=== PATIENT | female | born 1955 | race Caucasian/White ===

== ENCOUNTER → 2017-01-27 | Outpatient (CLI) | payer BC ==
[~2017-01-27] MED LIST: ASTN; BENA10TA9 PO; CITA20TA9 PO; ESZO3TAB15 PO; FLUR100T PO; FLUT0.15 INH; GLC850 PO; LEVO25TA PO; MULTTAB58 PO; OMEP40CA PO; PSEU30TA20 PO; [UNRECOGNIZED DRUG - REMARK] PO
--- NOTE | 2017-01-27 14:03 | DIAGNOSTIC IMAGING REPORT ---
LEFT SHOULDER MIN 2 VIEWS CLINICAL HISTORY: Left shoulder pain status post trauma COMPARISON: None. DISCUSSION: No acute fractures or dislocations are visualized. There is humeral head spurring at the level of the greater tuberosity. Degenerative changes are present within the AC joint. IMPRESSION: No acute fractures or dislocations identified. Electronically signed by: Thad Govea M.D. 01/27/2017 2:02 PM Dictated Date/Time: 01/27/2017 2:01 PM
--- NOTE | 2017-01-27 14:07 | DIAGNOSTIC IMAGING REPORT ---
LEFT WRIST MIN 3 VIEWS ROUTINE CLINICAL HISTORY: Left wrist pain following fall. COMPARISON: None FINDINGS: Alignment of the left wrist is anatomic. No acute fracture is identified. Osteopenia is noted. Mild arthritis is noted within multiple articulations. IMPRESSION: 1. No acute fracture. 2. Osteopenia and mild osteoarthritis of the left first carpometacarpal joint. Electronically signed by: Sharad Lacey M.D. 01/27/2017 2:06 PM Dictated Date/Time: 01/27/2017 2:05 PM
== END | disposition home or self-care (01) ==
LOC: C.RDSM 13:46
PROVIDERS: ATTEND Physician Assistant
DX: M25.532 Pain in left wrist (principal); S46.091D Other injury of muscle(s) and tendon(s) of the rotator cuff of right shoulder, subsequent encounter; X58.XXXD Exposure to other specified factors, subsequent encounter; M85.832 Other specified disorders of bone density and structure, left forearm

== ENCOUNTER → 2017-02-15 | Outpatient (CLI) | payer BC ==
[~2017-02-15] MED LIST changes: +GADAVIST IV PRN
--- NOTE | 2017-02-15 12:09 | DIAGNOSTIC IMAGING REPORT ---
FLUOROSCOPIC GUIDED LEFT SHOULDER ARTHROGRAM FLUOROSCOPY TIME: 6 seconds. HISTORY: Left shoulder pain.. PROCEDURE: After obtaining written informed consent, the patient was placed supine on the fluoroscopy table. A suitable site for needle insertion was marked using fluoroscopic guidance. The left shoulder was prepped and draped in the usual sterile fashion. 1% lidocaine was used for skin, subcutaneous and deep soft tissue anesthesia. Under intermittent fluoroscopic guidance, a 22 gauge 2.5 inch spinal needle was inserted into the left glenohumeral joint. A total of 14 cc of one-to-one mixture of dilute Magnevist (0.1 cc in 10 cc saline) and Optiray 300 were injected. The needle was then removed. There were no apparent complications. The patient was transported to for further imaging. IMPRESSION: Fluoroscopic-guided left shoulder arthrogram without immediate complication. Total injected volume was 14 cc. MR portion of the examination will be dictated separately. Electronically signed by: Javon House M.D. 02/15/2017 12:07 PM Dictated Date/Time: 02/15/2017 12:07 PM
--- NOTE | 2017-02-15 14:10 | DIAGNOSTIC IMAGING REPORT ---
ADDENDUM Correction to the following report: Impression #5 should read as follows: 5. Mild glenohumeral and moderate acromioclavicular osteoarthritis. Electronically signed by: Khurram Ku M.D. 02/17/2017 3:47 PM Dictated Date/Time: 02/17/2017 3:47 PM ORIGINAL REPORT LEFT UPPER EXTREMITY JOINT W/ CLINICAL HISTORY: 61 years-old Female with FALL, LEFT SHOULDER PAIN, R/O RC INJURY. COMPARISON: Left shoulder radiographs 01/27/2017. TECHNIQUE: Multiplanar, multi sequence MRI of the left shoulder was performed following the intra-articular administration of 0.1 mL Gadavist. FINDINGS: The exam is mildly limited secondary to patient motion on several of the sequences. ROTATOR CUFF: There is moderate thickening with intermediate T2 signal noted involving the supraspinatus and infraspinatus tendons compatible with moderate to severe tendinosis. There is irregular full-thickness tear of the anterior, mid and posterior fibers of the insertional supraspinatus tendon, 1.3 x 1.6 cm in transverse and AP dimension (nicely seen on image 9 of the coronal T2 series and image 15 of the sagittal series). Contrast is seen extending from the joint capsule through the tear into the adjacent subacromial/subdeltoid bursa. No associated retraction. There is mild supraspinatus atrophy. There is mild fraying of the anterior insertional fibers of the infraspinatus tendon without high-grade partial or full-thickness tear identified. The teres minor is intact. There is mild tendinosis of the subscapularis tendon without discrete tear. BICEPS TENDON: The longhead biceps tendon is intact. No evidence of tendinosis. The biceps katya and anchor are intact. LABRUM: There is mild fraying involving the anterosuperior labrum, for example nicely seen on image 11 of the axial series and image 10 of the coronal series without acute appearing tear or paralabral cyst. GLENOHUMERAL JOINT: There is mild glenohumeral osteoarthritis with cartilaginous thinning and marginal spurring. No intra-articular loose body identified. ACROMIOCLAVICULAR JOINT: Moderate degenerative changes are present within the AC joint with subcortical cystic change, capsular hypertrophy and marginal spurring. The acromion demonstrates a smooth undersurface with mild spurring. Mild subacromial/subdeltoid bursitis. OUTLET SPACES: The suprascapular notch and quadrilateral space are without obstructing or space occupying lesions. BONE MARROW: No focal abnormality, fracture or marrow occupying lesion. SOFT TISSUES: The periarticular soft tissues are unremarkable. IMPRESSION: 1. Moderate severe background tendinosis involves the supraspinatus and infraspinatus tendons with an irregular full-thickness tear of the anterior, mid and posterior fibers of the insertional supraspinatal tendon, 1.3 x 1.6 cm. No associated tendon retraction, however there is mild volume loss of the supraspinatus musculature. 2. Mild fraying of the anterior insertional fibers infraspinatus tendon without high-grade partial or full-thickness tear identified. 3. Mild tendinosis of the subscapularis tendon. 4. Fraying of the anterosuperior labrum without acute labral tear or paralabral cyst. 5. 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 The above report was generated using voice recognition software. It may contain grammatical, syntax or spelling errors. Electronically signed by: Khurram Ku M.D. 02/15/2017 2:09 PM Dictated Date/Time: 02/15/2017 12:17 PM
== END | disposition home or self-care (01) ==
LOC: C.MRIBC 10:44
PROVIDERS: ATTEND Physician Assistant
DX: S46.092D Other injury of muscle(s) and tendon(s) of the rotator cuff of left shoulder, subsequent encounter (principal); X58.XXXD Exposure to other specified factors, subsequent encounter; M75.41 Impingement syndrome of right shoulder; M75.82 Other shoulder lesions, left shoulder; S46.012A Strain of muscle(s) and tendon(s) of the rotator cuff of left shoulder, initial encounter; M19.012 Primary osteoarthritis, left shoulder

== ENCOUNTER → 2017-04-27 | Outpatient (CLI) | payer BC ==
[~2017-04-27] MED LIST changes: -ASTN; +BENA10TA10 PO; -BENA10TA9 PO; +CITA20TA4 PO; -CITA20TA9 PO; +ESZO1TAB16 PO; -ESZO3TAB15 PO; +FISHOIL PO; -GADAVIST IV PRN; -GLC850 PO; +IRON PO; +METF-383 PO; +MISCCAP80 PO; -OMEP40CA PO; +OMEP40CA41 PO; -PSEU30TA20 PO; +VITAMIN D PO; -[UNRECOGNIZED DRUG - REMARK] PO
--- NOTE | 2017-04-28 07:50 | MAMMOGRAPHY REPORT ---
BILATERAL DIGITAL SCREENING MAMMOGRAM TOMOSYNTHESIS WITH CAD: 04/27/2017 CLINICAL HISTORY: Routine screening. Patient has no complaints. TECHNIQUE: Breast tomosynthesis in addition to standard 2D mammography was performed. Current study was also evaluated with a Computer Aided Detection (CAD) system. COMPARISON: Comparison is made to exams dated: 03/26/2016 mammogram, 03/21/2015 mammogram, 03/20/2014 m ammogram, 03/19/2013 mammogram, 01/24/2012 mammogram, and 01/20/2011 mammogram - [facility]. BREAST COMPOSITION: There are scattered areas of fibroglandular density in both breasts. FINDINGS: There is a small grouping of microcalcifications in the upper outer middle one third of th e right breast for which additional spot magnification views are recommended. A possible 16 mm lobul ated mass in the left upper outer quadrant warrants additional targeted ultrasound and possible addit ional mammographic views. No other suspicious mass, architectural distortion or cluster of microcalcifications is seen. IMPRESSION: ACR BI-RADS CATEGORY 0: INCOMPLETE EVALUATION: NEED ADDITIONAL IMAGING EVALUATION The small grouping of microcalcifications in the right upper outer quadrant and possible 16 mm lobula giuliana mass in the left upper outer quadrant need additional imaging evaluation. The patient will be called to schedule an appointment. Approximately 10% of breast cancers are not detected with mammography. A negative mammographic report should not delay biopsy if a clinically suggestive mass is present. Tanan Salinas M.D. ay/:04/27/2017 16:16:36 Associate Drafter: Maureen PINK(Sheila)(Shonda)(VIVI), [facility] letter sent: Addl Imaging 0 BI-RADS Code: ACR BI-RADS Category 0: Incomplete Evaluation: Need Additional Imaging Evaluation
== END | disposition home or self-care (01) ==
LOC: C.MAMM 15:46
PROVIDERS: ATTEND Obstetrics & Gynecology
DX: Z12.31 Encounter for screening mammogram for malignant neoplasm of breast (principal); R92.0 Mammographic microcalcification found on diagnostic imaging of breast

== ENCOUNTER → 2017-04-29 | Day surgery (SDC) | payer BC ==
[2017-04-12 13:12] VITALS: Ht 170.2 cm; Wt 90.9 kg
[~2017-04-29] VITALS: Ht 170.2 cm; Wt 90.9 kg
[~2017-04-29] MED LIST changes: +ATROPINE SULFATE 0.1 MG/ML 5ML SYR IV PRN; +BUPIVACAINE/EPINEPHRINE 0.5% MPF 1:200,000 30 ML VIAL ONE; +CEFAZOLIN 2000MG IV PUSH 10 ML IV SCH; +DEXAMETHASONE SOD INJ 4 MG/ML VIAL ONE; +EpHEDrine SULFATE 50MG/5ML SYR ONE; +EpHEDrine SULFATE INJ 50 MG/ML AMP IV PRN; +EpINEphrine HCL INJ 1 MG/ML 5ML SYRINGE ONE; +FENTANYL CITRATE INJ 50 MCG/1 ML 2 ML VIAL IV PRN; +FENTANYL CITRATE INJ 50 MCG/1 ML 2 ML VIAL ONE; +HYDROmorphone INJ 1 MG/ML SYR IV PRN; +LABETALOL HCL IV 5 MG/ML 20ML IV ONE; +LACTATED RINGER'S 1000ML 1,000 ML IV SCH; +LIDOCAINE HCL 2% 2 ML VIAL (20MG/ML) ONE; +MIDAZOLAM HCL 1 MG/ML 2ML VIAL ONE; +ONDANSETRON INJ 2 MG/ML 2 ML VIAL IV PRN; +ONDANSETRON INJ 2 MG/ML 2 ML VIAL ONE; +OXYCODONE/ACETAMINOPHEN 5-325 TAB PO PRN; +PROPOFOL IV EMULSION 10 MG/ML 20 ML VIAL IV ONE; +ROCURONIUM BROMIDE 10 MG/ML 5 ML VIAL IV ONE; +ROPIVACAINE 0.5% 5 MG/ML 30 ML VIAL ONE; +SODIUM CHLORIDE 0.9% 1000ML 1,000 ML IV SCH; +SUCCINYLCHOLINE CHLORIDE 20 MG/ML 10 ML VIAL IV ONE
--- NOTE | 2017-04-29 09:06 | History & Physical Bridge Note ---
H&P Re-Evaluation Bridge Note: I have examined the patient, reviewed the History & Physical and in the interval since the performance of the History & Physical I have noted the following changes of clinical significance: consent reviewed.No changes noted
--- NOTE | 2017-04-29 09:08 | Discharge Instructions ---
Discharge Instructions Date of Service Apr 29, 2017. Visit Reason for Visit: Left Shoulder Rotator Cuff Tear Discharge Discharge Diagnosis / Problem: same Discharge Goals Goal(s): Decrease discomfort, Increase independence Medications Stopped Medications Name(s): Stopped Metformin Tuesday. Last took Tuesday. Activity Recommendations Activity Limitations: as noted below Lifting Limitations: until after follow-up appointment Exercise/Sports Limitations: until after follow-up appointment May Resume Sexual Activity: when tolerated Shower/Bathe: keep incision dry Driving or Machine Use: resume 3 days after discharge Anesthesia . Post Anesthesia Instructions: If you have had General Anesthesia or IV Sedation: * Do not drive today. * Resume driving when surgeon permits. * Do not make important decisions or sign legal documents today. * Call surgeon for: 1. Temperature elevations greater than 101 degrees F. 2. Uncontrollable pain. 3. Excessive bleeding. 4. Persistent nausea and vomiting. 5. Medication intolerance (nausea, vomiting or rash). * For nausea and vomiting use only clear liquids such as: tea, soda, bouillon until nausea subsides, then gradually increase diet as tolerated. * If you have any concerns or questions, call your surgeon's office. If physician is unavailable and it is an emergency, call 911 or go to the nearest emergency room. . Instructions / Follow-Up Instructions / Follow-Up The following are instructions to follow after "Shoulder Surgery" including, Acromioplasty, Rotator Cuff Repair and Instability Surgery ACTIVITY RECOMMENDATIONS: * Minimize activity after surgery. * No excessive walking, jogging, sports or laboring. * Return to activity is individualized depending on the patient and type of surgery. * Driving is not permitted until at least your first post operative visit. Please ask your doctor when it is safe to resume driving. * Expect increased discomfort with increased activity. Continue to ice the shoulder as needed. SCHOOL/WORK RECOMMENDATIONS: * You may return to sedentary work or school when you are feeling more comfortable. This is usually 3-7 days after surgery. MEDICATIONS: * You will have a prescription for pain medication and an anti-inflammatory medication after surgery. * Use the pain medication for severe pain and the anti-inflammatory for less severe pain. Once the pain medication has run out, try to use the anti-inflammatory medication. If this is not effective, contact the office for assistance. * The pain medication may cause nausea, constipation and drowsiness. You should see how they affect you before driving or similar activity. * The anti-inflammatory medication may cause stomach upset and bleeding. If this occurs let your doctor know immediately . * Take a stool softener like Colace or a laxative like Senokot to prevent constipation. DIET: * Resume previous diet. SPECIAL CARE: ICE: You have the option of an ice cooler, gel packs or ice bags. * If you have an ice cooler, refer to the instructions for that device. The ice cooler may be used continuously. * If you do not have an ice cooler, you will need to use ice bags or gel packs. Do not apply ice directly to the skin. Use a thin dressing or love shirt between the skin and ice bag. Apply ice for 20-30 minutes and repeat every 2-4 hours. This is especially important for the first 7-10 days after surgery. Once the pain improves, use ice as needed. ELEVATION: * You may be more comfortable sleeping in an upright position. Use the sling to elevate your arm. DRESSING: * Your dressing will be changed at your first therapy appointment approximately 4-5 days after surgery. Band-aids, tape strips or gauze may be applied. You may then change your dressing daily. * Reapply dressing followed by the EBIce cooling pad (if chosen) and then the sling. * Always wash your hands prior to touching the incision area. * Once the stitches are removed, you may leave the wound open to air or cover with gauze. * Expect some bloody drainage for the first few days after surgery. * Leave the tape strips, if present, in place for 5-7 days. * Band-aids and gauze may be changed daily. * There may be a gauze pad in your armpit area. This can be changed daily or replaced by a dry washcloth. SLING/BRACE: * You will need to use a sling or brace after surgery. The length of time the sling is used is dependent upon the type of surgery performed. * Arthroscopic Acromioplasty requires use of the sling for 2-4 weeks for comfort. * Labral procedures and Rotator Cuff Repairs require use of the sling for a longer period of time. Please check with your doctor prior to discontinuing the sling. BATHING: * You may shower or sponge-bathe immediately after surgery. The post operative shoulder dressing is mostly water-tight. You may shower right over this dressing, but be reasonably careful not to get the gauze or incision wet. * Once the dressing has been changed on the fourth or fifth day after surgery, you may shower and get the incision wet. * Wash with regular soap and water. * Do not bathe (submerge the incision), soak, swim or use a hot tub until the incision is completely healed over with normal skin and the doctor has given the OK to proceed. * There is no need to apply any ointments, powders or salves to your incision. * Do not apply alcohol or hydrogen peroxide directly to the incision. * Diluted peroxide (50:50 mixture with sterile saline) may be used to clean dried blood from around the incision area. THERAPY: * You will begin therapy four or five days after surgery. * Organized therapy with the therapist is important for the first 2-4 months after surgery depending on the type of procedure. During that time you will attend therapy 1-3 times per week. * You will also need to do daily exercises for range of motion and strength as instructed. * Patients who have a Capsular Shift Procedure will need to abide by temporary range of motion limitations. * Patients having Rotator Cuff Surgery are not allowed to actively lift their arms until 4-6 weeks after surgery. * Please check with your doctor regarding appropriate motion restrictions. FOLLOW UP VISIT: * If not already scheduled, please call the office at to schedule a follow-up appointment for 10 days after surgery and monthly thereafter. Diet Recommendations Recommended Home Diet: diabetes diet Procedures Procedures Performed: see op note Pending Studies Studies pending at discharge: no Medical Emergencies . Who to Call and When: Medical Emergencies: If at any time you feel your situation is an emergency, please call 911 immediately. . Non-Emergent Contact Non-Emergency issues call your: Specialist Call Non-Emergent contact if: wound has increased drainage, wound has increased redness, wound has increased pain . . "Provider Documentation" section prepared by Eliazar Singer. .
--- NOTE | 2017-04-29 10:41 | [facility] Post Operative Brief Note ---
Immediate Operative Summary Operative Date Apr 29, 2017. Pre-Operative Diagnosis Left Shoulder Rotator Cuff Tear/impimgement/bicepe tendinitis Post-Operative Diagnosis Same Procedure(s) Performed Left Shoulder Exam Under Anesthesia, Arthroscopy, Biceps Tenotomy, 2 CM Rotator Cuff Repair/subacromial decompression Surgeon Dr. Bereket Singer Corporate Compliance Director Surgeon(s) Dr. Jarek Nelson Estimated Blood Loss Trace Findings see op note Fluids (cc crystalloids) 1100cc Specimens None Drains none Anesthesia LMA Complication(s) None Disposition Recovery Room / PACU
--- NOTE | 2017-04-29 11:10 | OPERATIVE REPORT ---
DATE OF OPERATION: 04/29/2017 PREOPERATIVE DIAGNOSIS: Chronic impingement syndrome left shoulder with rotator cuff tear and biceps tendinopathy. POSTOPERATIVE DIAGNOSIS: Same. OPERATION PERFORMED: 1. Exam under anesthesia. 2. Diagnostic arthroscopy. 3. Arthroscopic subacromial decompression. 4. Arthroscopic biceps tenotomy. 5. Arthroscopic 2 cm rotator cuff repair. SURGEON: Dr. Singer. ARCHITECT: Omar. SIGNS AND DISPLAYS SALES REPRESENTATIVE: Cristian Montero PA-C. PERIOPERATIVE SITUATION: Medically cleared female with intractable shoulder pain. Physical exam, x-ray and MRI scan consistent with the above diagnosis. She is diabetic. She is appropriately managed. She was advised that this could become quite stiff, see complication list for to the procedure on the consent. OPERATION AND FINDINGS: PROCEDURE: The patient appropriately identified, site verified, consent verified, 2 grams of Ancef confirmed as being given. The shoulder was examined revealing no instability, no arthrofibrosis. She was then carefully placed in a beach chair position and left upper extremity prepped and draped in usual routine fashion. An anterior portal made just off the edge of the AC joint. Posterior portal made 2 cm medial and inferior to posterolateral tip of the acromion joint was entered. Immediately encountered was a significant biceps tendinopathy with flattening and hyperemia of the tendon. This was released. The labrum was gently debrided. There was some superior labral changes. There was some minor articular disease that was lightly debrided. The remaining part of the shoulder joint was normal with the exception of the supraspinatus tear which was quite frayed. This was marked with a needle. The subacromial space was then entered. There was exuberant bursa that was resected. CA ligament was then resected. The acromioplasty was then performed. Using an accessory anterolateral portal a Maryellen cannula was placed and 2 sutures placed anteriorly on the cup, 2 sutures placed posteriorly on the cup. Two anchors were then placed 4.75 PEEK SwiveLock anchors repairing the tendon back down to its almost new [place] insertion site. This was all cleaned of soft tissue. Good tension was on the repair. The repair was quite a combination of intraarticular and subacromial delamination. This was all tapered with the shaver and the thermal device to decrease any type of impingement complaints. Tension on the repair was good. It could be placed through range of motion without retraction. The procedure was then terminated. All instruments and fluid removed. The portals closed with 4-0 nylon, dressed with Xeroform, 4 x 4 gauze, sterile ABD pads and Ioban dressing. The patient will follow up in PT on Tuesday. DVT prophylaxis not required, ambulate. Use aspirin only. ESTIMATED BLOOD LOSS: Trace. CRYSTALLOID: 1100 mL. I attest to the content of the Intraoperative Record and any orders documented therein. Any exception s are noted below.
[2017-04-29 11:39] VITALS: TEMP 36.2
--- NOTE | 2017-04-29 12:09 | Anesthesia Progress Nt - [facility] ---
Anesthesia Post Op Note Date & Time Apr 29, 2017 at 12:09 Vital Signs Pain Intensity: 0 Vital Signs Past 12 Hours Date Time Temp Pulse Resp B/P (MAP) Pulse Ox O2 Delivery O2 Flow Rate FiO2 04/29/17 11:39 36.2 58 18 170/84 (112) 98 Room Air 04/29/17 11:36 170/83 04/29/17 11:34 36.8 60 16 170/83 95 Room Air 04/29/17 11:33 61 22 96 04/29/17 11:33 61 22 04/29/17 11:31 178/80 04/29/17 11:28 58 16 161/78 98 04/29/17 11:28 57 16 04/29/17 11:26 138/112 04/29/17 11:23 63 18 04/29/17 11:23 62 18 04/29/17 11:21 155/81 04/29/17 11:18 67 14 04/29/17 11:18 67 14 98 04/29/17 11:16 168/84 04/29/17 11:13 66 11 04/29/17 11:13 65 11 100 04/29/17 11:11 167/86 04/29/17 11:08 71 14 04/29/17 11:08 69 14 99 04/29/17 11:06 170/84 04/29/17 11:03 71 16 04/29/17 11:03 71 16 100 04/29/17 11:01 174/75 04/29/17 10:58 64 12 04/29/17 10:58 63 12 100 04/29/17 10:56 177/84 04/29/17 10:54 167/87 04/29/17 10:53 36.3 73 16 162/87 100 Mask 6 04/29/17 09:15 10 04/29/17 09:11 169/89 04/29/17 09:10 64 18 100 04/29/17 09:10 63 04/29/17 09:05 64 04/29/17 09:05 72 0 169/95 99 04/29/17 07:05 70 04/29/17 07:05 70 0 99 04/29/17 07:00 69 0 99 04/29/17 07:00 69 04/29/17 06:55 0 04/29/17 06:30 37. 62 16 167/79 (108) 97 Room Air Notes Mental Status: alert / awake / arousable, participated in evaluation Pt Amnestic to Procedure: Yes Nausea / Vomiting: adequately controlled Pain: adequately controlled Airway Patency, RR, SpO2: stable & adequate BP & HR: stable & adequate Hydration State: stable & adequate Anesthetic Complications: no major complications apparent The patient was given Labetalol 5mg IV in recovery for elevated BP. She was also instructed to take her BP medication when she gets home.
[2017-04-29 12:20] VITALS: BP 160/84; PULSE 59; O2SAT 96
== END | disposition home or self-care (01) ==
LOC: X.SURG 06:21
PROVIDERS: ATTEND Physical Medicine & Rehabilitation Sports Medicine
DX: M75.42 Impingement syndrome of left shoulder (principal); M75.102 Unspecified rotator cuff tear or rupture of left shoulder, not specified as traumatic; M75.22 Bicipital tendinitis, left shoulder; R00.2 Palpitations; I10 Essential (primary) hypertension; E78.00 Pure hypercholesterolemia, unspecified; E11.9 Type 2 diabetes mellitus without complications; K21.9 Gastro-esophageal reflux disease without esophagitis; E03.9 Hypothyroidism, unspecified; E66.9 Obesity, unspecified; M19.90 Unspecified osteoarthritis, unspecified site; Z79.84 Long term (current) use of oral hypoglycemic drugs; Z79.899 Other long term (current) drug therapy

== ENCOUNTER → 2017-05-10 | Outpatient (CLI) | payer BC ==
[~2017-05-10] MED LIST changes: -ATROPINE SULFATE 0.1 MG/ML 5ML SYR IV PRN; -BUPIVACAINE/EPINEPHRINE 0.5% MPF 1:200,000 30 ML VIAL ONE; -CEFAZOLIN 2000MG IV PUSH 10 ML IV SCH; -DEXAMETHASONE SOD INJ 4 MG/ML VIAL ONE; -EpHEDrine SULFATE 50MG/5ML SYR ONE; -EpHEDrine SULFATE INJ 50 MG/ML AMP IV PRN; -EpINEphrine HCL INJ 1 MG/ML 5ML SYRINGE ONE; -FENTANYL CITRATE INJ 50 MCG/1 ML 2 ML VIAL IV PRN; -FENTANYL CITRATE INJ 50 MCG/1 ML 2 ML VIAL ONE; -HYDROmorphone INJ 1 MG/ML SYR IV PRN; -LABETALOL HCL IV 5 MG/ML 20ML IV ONE; -LACTATED RINGER'S 1000ML 1,000 ML IV SCH; -LIDOCAINE HCL 2% 2 ML VIAL (20MG/ML) ONE; -MIDAZOLAM HCL 1 MG/ML 2ML VIAL ONE; -ONDANSETRON INJ 2 MG/ML 2 ML VIAL IV PRN; -ONDANSETRON INJ 2 MG/ML 2 ML VIAL ONE; -OXYCODONE/ACETAMINOPHEN 5-325 TAB PO PRN; -PROPOFOL IV EMULSION 10 MG/ML 20 ML VIAL IV ONE; -ROCURONIUM BROMIDE 10 MG/ML 5 ML VIAL IV ONE; -ROPIVACAINE 0.5% 5 MG/ML 30 ML VIAL ONE; -SODIUM CHLORIDE 0.9% 1000ML 1,000 ML IV SCH; -SUCCINYLCHOLINE CHLORIDE 20 MG/ML 10 ML VIAL IV ONE
--- NOTE | 2017-05-10 14:31 | MAMMOGRAPHY REPORT ---
UNILATERAL RIGHT DIGITAL DIAGNOSTIC MAMMOGRAM AND TARGETED LEFT ULTRASOUND: 05/10/2017 CLINICAL HISTORY: Callback from screening mammogram for right breast calcifications and left breast m ass. TECHNIQUE: Spot magnification right cc and ML views were obtained. COMPARISON: Comparison is made to exams dated: 04/27/2017 mammogram, 03/26/2016 mammogram, 03/21/2015 m ammogram, 03/20/2014 mammogram, 03/19/2013 mammogram, and 01/24/2012 mammogram - [facility]ter. BREAST COMPOSITION: There are scattered areas of fibroglandular density in the right breast. FINDINGS: Spot magnification views of the right breast demonstrate a small 4 mm cluster of approximat jaziel 3-4 heterogeneous calcifications in the right upper outer quadrant. When compared to prior exams , the calcifications are stable dating back to at least the March 2015 exam, and are therefore prob ably benign given at least 2 years of stability. Targeted ultrasound was performed of the left upper outer quadrant in the region of the lobulated chetna mographic mass. In the left breast at 1:00, approximately 7 cm from the nipple, there is an oval cir cumscribed hypoechoic solid mass which measures 10 x 5 x 6 mm. This corresponds with the circumscrib ed mammographic mass seen on the recent screening mammogram. The mass is stable mammographically com pared to MLO views dating back to at least 2010 and 2008. Given the long-term mammographic stability , the mass is considered benign and likely represents a fibroadenoma. IMPRESSION: ACR-BI-RADS CATEGORY 3: PROBABLY BENIGN, TARGETED ULTRASOUND ACR-BI-RADS CATEGORY 3: PRO BABLY BENIGN 1. Small cluster of calcifications in the right upper outer quadrant is stable dating back to at [address] the 2014 exam and is probably benign given greater than 2 years of stability. Recommend follow-up diagnostic tomosynthesis mammograms of the right breast in 6 months to confirm stability on spot mag nification views. 2. Hypoechoic 10 mm mass in the left breast at 1:00 on ultrasound, which corresponds with the mammog raphic mass. The mass has been stable mammographically dating back to 2008 and is therefore consider ed benign and likely represents a fibroadenoma. The patient has been verbally notified of the results. Approximately 10% of breast cancers are not detected with mammography. A negative mammographic report should not delay biopsy if a clinically suggestive mass is present. Nadeen Potter M.D. ah/:05/10/2017 10:39:24 Computer Systems Technician: Rolanda Espinal RT(R)(M), [facility] letter sent: Follow Up Recommended 3 BI-RADS Code: ACR-BI-RADS Category 3: Probably Benign Ultrasound BI-RADS: ACR-BI-RADS Category 3: Pr obably Benign
== END | disposition home or self-care (01) ==
LOC: C.MAMM 09:17
PROVIDERS: ATTEND Obstetrics & Gynecology
DX: R92.1 Mammographic calcification found on diagnostic imaging of breast (principal); N63.20 Unspecified lump in the left breast, unspecified quadrant

== ENCOUNTER → 2017-06-06 | Outpatient (CLI) | payer BC | END | disposition home or self-care (01) | LOC: C.RDSM 11:52 | PROVIDERS: ATTEND Physical Medicine & Rehabilitation Sports Medicine | DX: M75.42 Impingement syndrome of left shoulder (principal) ==

== ENCOUNTER → 2017-11-07 | Outpatient (CLI) | payer OTHER ==
--- NOTE | 2017-11-07 15:09 | MAMMOGRAPHY REPORT ---
UNILATERAL RIGHT DIGITAL DIAGNOSTIC MAMMOGRAM TOMOSYNTHESIS WITH CAD: 11/07/2017 CLINICAL HISTORY: 61-year-old woman presents for follow-up in the right breast for a small grouping o f calcifications in the right upper outer quadrant. TECHNIQUE: Breast tomosynthesis in addition to standard 2D mammography was performed. Current study was also evaluated with a Computer Aided Detection (CAD) system. COMPARISON: Comparison is made to exams dated: 05/10/2017 mammogram, 05/10/2017 ultrasound, 7 mammogram, 03/26/2016 mammogram, 03/21/2015 mammogram, and [facility] BREAST COMPOSITION: There are scattered areas of fibroglandular density in the right breast. FINDINGS: The glandular pattern of the right breast is similar to prior mammograms. There are a few benign-appearing coarse calcifications. A linear scar marker overlies the right upper outer quadran t posteriorly. The spot magnification views of the right breast redemonstrate a small, 4 mm grouping of somewhat verito ear calcifications in the right upper outer middle one third of the breast, that appears similar to t he spot magnification views obtained on 05/10/2017. These are also likely stable dating back to 2015 , given slight differences in technique. Although they could represent a benign degenerating fibroad enoma, another short interval follow-up right diagnostic mammogram including spot magnification views is recommended to ensure longer stability. Annual left mammography will also be due at that time. IMPRESSION: ACR-BI-RADS CATEGORY 3: PROBABLY BENIGN Stable mammographic appearance of the right breast including a small 4 mm grouping of calcifications in the right upper outer quadrant. Another short interval follow-up right diagnostic mammogram inclu ding spot magnification views is recommended to ensure longer stability. Annual left mammography jenise l also be due at that time. These results and recommendations were discussed with the patient at the time of the exam. Approximately 10% of breast cancers are not detected with mammography. A negative mammographic report should not delay biopsy if a clinically suggestive mass is present. Tanna Salinas M.D. ay/:11/07/2017 11:29:18 Advanced Practice Professional: Shannan PINK(Sheila)(Shonda), [facility] letter sent: Follow Up Recommended 3 BI-RADS Code: ACR-BI-RADS Category 3: Probably Benign
== END | disposition home or self-care (01) ==
LOC: C.MAMM 09:37
PROVIDERS: ATTEND Obstetrics & Gynecology
DX: R92.1 Mammographic calcification found on diagnostic imaging of breast (principal)

== ENCOUNTER 2021-07-20 18:25 | Observation (INO) ==
[2021-07-20] MEDS ORDERED: fentaNYL citrate 100 MCG/2 ML VIAL IV STA (18:51)
[2021-07-20] MEDS ORDERED: ONDANSETRON INJ 2 MG/ML 2 ML VIAL IV STA ×2 (18:51→20:39)
--- NOTE | 2021-07-20 18:55 | Emergency Department Note ---
ED Visit Note 65 yo F presenting with fall Fell on flat concrete, no syncope/LOC, hit R knee, L elbow, L side of head XR imaging of R knee/pelvis, L elbow, chest, CT Head Pt seen and evaluated with Dr. Escudero, please refer to his note for further documentation. . Resident Activity Tracking Resident Involvement: Resident Care Provided Care Provided: Adult ED
--- NOTE | 2021-07-20 19:11 | Emergency Department Note ---
Impression & Plan Fracture of right patella, Closed head injury, Laceration of left eyebrow, Acute effusion of left ear, Vertigo ED Provider Note Name: JAGJIT MENENDEZ Age: 65 Sex: F Arrives Via: Ambulance Informant: Patient, EMS ED Provider: Hung Escudero MD Chief Complaint: Fall Impression: As per impressions above Medical Decision Making: Pleasant 65-year-old female with a history of hypertension, hypothyroidism, diabetes who was taking out garbage as evening when she fell to the ground. Initially sounded like she slipped and fell though does admit almost vertiginous symptoms and I will note she does have a left ear effusion. Patient does not have any neurologic deficits or other concerning findings by exam. X-rays with a right patellar fracture and CT of the head is negative. Laceration to the left eyebrow was repaired with Dermabond. Her tetanus shot was within the last 10 years. Patient is feeling better with IV narcotics and would like to try going home. I did discuss this with orthopedics who agree with plan for discharge with outpatient follow-up. Attempted to ambulate patient with knee immobilizer and walker and she is too vertiginous in too much discomfort. Patient is on board with hospitalization for management of her ambulatory dysfunction and vertiginous symptoms. Labs, CT head, EKG are all unremarkable. She has no shortness of breath no evidence of PE. She does have mildly elevated WBC consistent with stress response. Her blood sugar is moderately elevated consistent with her known diabetes. Prior Medical Record and Triage/Nursing Notes reviewed by Me Additional history obtained from chart Differentials:Fracture, dislocation, contusion, intra-abdominal, pneumothorax, intrathoracic, intracranial, neurologic, compartment syndrome, rhabdomyolysis, as well as other pathologies. Vital Signs: reviewed and remarkable for HTN Interventions: fentanyl 75mcg IV, Zofran 4mg iv x 2, dialudid 1 mg iv, nss bolus Labs:Reviewed and remarkable for elevated wbc, elevated bsg Imaging:See Below EKG:Per My Interpretation: Indication Near syncope: NSR 76 bpm, qtc 486. No Ectopy. No Ischemia. Compared to EKG 03/26/15, no significant changes. Consults:Dr. Randolph of orthopedics advised knee immobilizer and discharged with plan to see in clinic tomorrow. Dr. Darnell of [facility] consulted given the persistent vertiginous symptoms and pain and will hospitalize. Plan: Disposition:Hospitalization. Condition: Good History of Present Illness:65-year-old female arrives following a fall at home. She notes she was taking out her compost when she fell to the ground. She is unsure if she slipped or why exactly she fell but she is adamant there was no presyncope/syncope/chest pain or other symptoms prior to falling. She does note that it was icy and cold outside. When she fell she landed on her right knee, her left elbow and the left side of her head. She denies loss of consciousness. She has no neurologic or stroke symptoms. Patient states she does not fall reg ularly. After she fell she realized her knee hurt so bad she could not stand up and she laid on the ground for roughly half hour before a friend walked by. Friend called 911 and now patient is in the ER. Patient notes she is quite cold initially but is starting to warm up with blankets. She has no medications prior to arrival. She states she was not drinking alcohol and or doing any drugs today. She has had no recent head injuries other than today's. She is on no blood thinners nor anticoagulants. She has no family history of bleeding disorders. Patient notes that she was feeling fine earlier in the day and walked her dog quite some distance without any discomfort or difficulty. Patient arrives via EMS. There were no interventions prior to arrival. Patient notes movement of the knee makes her have severe pain and at rest she has moderate pain. ROS: See above HPI for pertinent positives & negatives. A total of 8 systems reviewed and were otherwise negative. Past Medical History:GERD, hypothyroidism, hypertension, diabetes, vertigo, anxiety/depression Past Surgical History:Bilateral shoulder surgery, left knee meniscus surgery Family History:Denies familial history of bleeding disorders Social History:Patient is , does not smoke does not drink alcohol denies any drug use. 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 Home Medications:See Below Allergies:Naproxen Vitals:Blood Pressure: 225/80, Pulse 78, RR 17, T 37.2C, O2 98% on RA Physical Exam: GENERAL: Patient is very uncomfortable appearing and in moderate distress. HEAD: Left facial contusion with 1 cm laceration lateral left eyebrow. EYES: No scleral icterus, unremarkable pupils. ENT: Mucous membranes moist, no nasal congestion. NECK: No masses appreciated, nomeningismus, trachea is midline. No midline TTP. RESPIRATORY: No dyspnea. Clear to auscultation and equal bilaterally. No wheeze, no rhonchi. CARDIOVASCULAR: Regular rate and rhythm.No murmurs, rubs, gallops appreciated. GASTROINTESTINAL: Abdomen soft, non-tender, no peritonitis.Bowel sounds positive.No masses appreciated. BACK: No midline tenderness, no CVA tenderness EXTREMITIES: Bruising/swelling over right patella with severe pain with any movement. Distal n/v intact with normal movement foot. No hip nor femur TTP. Posterior knee without TTP. Left elbow mild swelling with mild TTP and some pain with ROM. No TTP bilateral shoulders nor difficulty with shoulder movement. Normal motion all extremities, no cyanosis, no edema. NEUROLOGIC: Alert and oriented, no acute motor or sensory deficits, no focal weakness, cranial nerves grossly intact. SKIN: No rash, no jaundice, no diaphoresis. PSYCH: Appropriate GCS: 15 ED Course: Times/Reassessments: Patient's pain was controlled with IV narcotics. She was on board with trying to go home but was far too vertiginous when standing and pain could not be controlled without IV narcotics. Procedures: Laceration Repair: Location: left eyebrow Complexity: Simple Length: 1 cm Verbal consent was obtained after the risks and benefits were explained, including but not limited to bleeding, scarring, infection, pain, and bone/ joint/nerve damage. At this time, the risks of the procedure are less than the risks of NOT performing the procedure. A time out was taken and the correct patient and site identified. The skin was prepped with saline. The wound was explored for foreign bodies and none found. Examination revealed no injury to deep structures such as tendons, bone, or significant blood vessels. Debridement was not performed. The wound edges were approximated using dermabond. Hemostasis and excellent approximation was achieved. Detailed wound care instructions and signs and symptoms of infection reviewed with the patient. No complications and the patient tolerated the procedure well. I personally performed the entire procedure. Hung Escudero MD Past Med/Surg History Medical History Chronic sinusitis Diabetes mellitus Hypertension Hypothyroidism Laryngopharyngeal reflux Obesity Postmenopausal atrophic vaginitis Surgical History History of bronchoscopy Hx of colonoscopy Hx of hysterectomy Hx of knee surgery Hx of lumpectomy Hx of rotator cuff surgery both shoulders Family History (Updated 09/10/20 @ 09:37 by Jesusita Licona MD, FACOG) Mother Bipolar disorder Diabetes Carotid artery disease Grandmother (Maternal) Cancer Father Hypertension Prostate cancer Denies family history of Breast cancer Colorectal cancer Social History Smoking Status: Former smoker Tobacco Type: Cigarettes Preferred Language: Palestinian Feels Safe at Home: Yes Allergies Allergies Allergy/AdvReac Type Severity Reaction Status Date / Time naproxen Allergy Unknown JOINT Verified 07/20/21 19:57 INFLAMMATION Home Meds Home Medications Medication Instructions Recorded Confirmed fluticasone propionate 50 2 spray INTNAS DAILY 01/18/20 07/20/21 mcg/actuation nasal spray,suspension levothyroxine 175 mcg tablet 175 mcg PO QAM 01/18/20 07/20/21 metformin 850 mg tablet 850 mg PO TID 01/18/20 07/20/21 omeprazole 20 mg capsule,delayed 20 mg PO QAM 01/18/20 07/20/21 release multivitamin (Daily Multi-Vitamin) 1 tab PO DAILY 09/10/20 07/20/21 atorvastatin 10 mg tablet 10 mg PO QAM 07/20/21 07/20/21 benazepril 10 mg tablet 10 mg PO QAM 07/20/21 07/20/21 bupropion HCl 150 mg 24 hr tablet, 150 mg PO QAM 07/20/21 07/20/21 extended release escitalopram oxalate 20 mg tablet 20 mg PO QAM 07/20/21 07/20/21 flurbiprofen 100 mg tablet 100 mg PO BID 07/20/21 07/20/21 omega 7-kxy-bkr-fish oil 900 1 cap PO QAM 07/20/21 07/20/21 mg-1,400 mg capsule,delayed release Results & Data (ED) Vital Signs Vital Signs - 24 hr 07/20/21 18:38 07/20/21 19:27 07/20/21 20:53 Temperature 37.2 C Temperature Source Oral Pulse Rate 78 Pulse Rate [Left Radial] 83 79 Pulse Rhythm [Left Radial] Regular Pulse Strength [Left Radial] Normal Respiratory Rate 17 15 18 Respiratory Effort / Characteristics Non-Labored Non-Labored Blood Pressure 225/80 H Blood Pressure [Right Arm] 246/103 H 175/80 H Blood Pressure Mean 128 Blood Pressure Mean [Right Arm] 150 111 Blood Pressure Position [Right Arm] Lying Pulse Oximetry 98 97 95 Oxygen Delivery Method Room Air Room Air Room Air Sepsis Recent Fever Within 48 Hours No Sepsis New/Unexplained Change in Mental Status N/A Sepsis Action Taken by Nursing No Action Required Laboratory Data Result diagrams: 07/20/21 21:47 07/20/21 23:01 Lab Results 07/20/21 07/20/21 07/20/21 Range/Units 21:42 21:47 21:47 WBC 16.71 H (4.8-10.8) K/uL RBC 4.08 L (4.2-5.4) M/uL Hgb 10.5 L (12.0-16.0) g/dL Hct 33.9 L (37-47) % MCV 83.1 (80-100) fL MCH 25.7 (25-34) pg MCHC 31.0 L (32-36) g/dL RDW Std Deviation 44.1 (36.4-46.3) fL RDW Coeff of Rudi 14.5 (11.5-14.5) % Plt Count 266 (130-400) K/uL MPV 10.7 H (7.4-10.4) fL Immature Gran % (Auto) 0.3 % Neut % (Auto) 89.0 % Lymph % (Auto) 6.1 % [place] % (Auto) 4.3 % Eos % (Auto) 0.2 % Baso % (Auto) 0.1 % Neut # (Auto) 14.86 H (1.4-6.5) K/uL Lymph # (Auto) 1.02 L (1.2-3.4) K/uL [place] # (Auto) 0.72 H (0.11-0.59) K/uL Eos # (Auto) 0.04 (0-0.5) K/uL Baso # (Auto) 0.02 (0-0.2) K/uL Immature Gran # (Auto) 0.05 H (0.00-0.02) K/uL Sodium 136 (136-145) mmol/L Potassium TNP Chloride 104 (98-107) mmol/L Carbon Dioxide 25 (21-32) mmol/L Anion Gap 7 (3-11) BUN 26 H (6-23) mg/dl Creatinine 0.83 (0.6-1.2) mg/dl Est Cr Clr Drug Dosing 80.8 ml/min Est GFR ( Amer) 85.2 ml/min Est GFR (Non-Af Amer) 73.5 ml/min BUN/Creatinine Ratio 31.3 H (10-20) Glucose 212 H (70-99(Fasting)) mg/dl POC Glucose (70-99) mg/dl Calcium 8.3 L (8.5-10.1) mg/dl Magnesium 1.7 (1.7-2.4) mg/dl Total Bilirubin (0.2-1.0) mg/dl Direct Bilirubin (0-0.2) mg/dl AST (13-39) U/L ALT (7-52) U/L Alkaline Phosphatase (34-104) U/L Troponin I < 0.03 (0-0.04) ng/ml Total Protein (6.0-8.3) gm/dl Albumin (3.4-5.0) gm/dl TSH (0.300-4.500) uIu/ml SARS-CoV-2, RNA, NAAT NEGATIVE (NEGATIVE) 07/20/21 07/20/21 07/20/21 Range/Units 21:47 23:01 23:18 WBC (4.8-10.8) K/uL RBC (4.2-5.4) M/uL Hgb (12.0-16.0) g/dL Hct (37-47) % MCV (80-100) fL MCH (25-34) pg MCHC (32-36) g/dL RDW Std Deviation (36.4-46.3) fL RDW Coeff of Rudi (11.5-14.5) % Plt Count (130-400) K/uL MPV (7.4-10.4) fL Immature Gran % (Auto) % Neut % (Auto) % Lymph % (Auto) % [place] % (Auto) % Eos % (Auto) % Baso % (Auto) % Neut # (Auto) (1.4-6.5) K/uL Lymph # (Auto) (1.2-3.4) K/uL [place] # (Auto) (0.11-0.59) K/uL Eos # (Auto) (0-0.5) K/uL Baso # (Auto) (0-0.2) K/uL Immature Gran # (Auto) (0.00-0.02) K/uL Sodium (136-145) mmol/L Potassium 4.6 Chloride (98-107) mmol/L Carbon Dioxide (21-32) mmol/L Anion Gap (3-11) BUN (6-23) mg/dl Creatinine (0.6-1.2) mg/dl Est Cr Clr Drug Dosing ml/min Est GFR ( Amer) ml/min Est GFR (Non-Af Amer) ml/min BUN/Creatinine Ratio (10-20) Glucose (70-99(Fasting)) mg/dl POC Glucose 219 H (70-99) mg/dl Calcium (8.5-10.1) mg/dl Magnesium (1.7-2.4) mg/dl Total Bilirubin 0.9 (0.2-1.0) mg/dl Direct Bilirubin 0.1 (0-0.2) mg/dl AST 15 (13-39) U/L ALT 19 (7-52) U/L Alkaline Phosphatase 77 (34-104) U/L Troponin I (0-0.04) ng/ml Total Protein 5.6 L (6.0-8.3) gm/dl Albumin 3.4 (3.4-5.0) gm/dl TSH 2.623 (0.300-4.500) uIu/ml SARS-CoV-2, RNA, NAAT (NEGATIVE) Administered Medications Discontinued Medications Fentanyl Citrate (Fentanyl Citrate 100 Mcg/2 Ml Vial) 75 mcg IV NOW STA Stop: 07/20/21 18:52 Last Admin: 07/20/21 19:30 Dose: 75 mcg Documented by: [id number] Hydromorphone HCl (Hydromorphone Inj 1 Mg/Ml Syringe) 1 mg IV NOW STA Stop: 07/20/21 20:29 Last Admin: 07/20/21 20:46 Dose: 1 mg Documented by: [id number] Insulin Glargine (Insulin Glargine Solostar 100 Units/Ml 3 Ml Pen) 5 units SC NOW STA Stop: 07/20/21 23:01 Last Admin: 07/20/21 23:12 Dose: 5 units Documented by: [id number] Cosigned by: [id number] Lisinopril (Lisinopril 10 Mg Tab) 10 mg PO NOW STA Stop: 07/20/21 22:50 Last Admin: 07/20/21 23:21 Dose: 10 mg Documented by: [id number] Ondansetron HCl (Ondansetron Inj 2 Mg/Ml 2 Ml Vial) 4 mg IV NOW STA Stop: 07/20/21 18:52 Last Admin: 07/20/21 19:30 Dose: 4 mg Documented by: [id number] Ondansetron HCl (Ondansetron Inj 2 Mg/Ml 2 Ml Vial) 4 mg IV NOW STA Stop: 07/20/21 20:40 Last Admin: 07/20/21 20:46 Dose: 4 mg Documented by: [id number] Imaging Data Radiologist's Impression: Head CT 07/20/21 18:[address] DOSE: 749.40 mGy.cm HISTORY: fall, head injury TECHNIQUE: Multiaxial CT images of the head were performed without the use of intravenous contrast. Automated exposure control was utilized for this study. A dose lowering technique was utilized adhering to the principles of ALARA. Comparison: Head CT 11/07/2020. Findings: There is a retention cysts again noted within the right maxillary sinus. The mastoid air cells are clear. Left periorbital soft tissue swelling. The globes and retrobulbar fat appear intact. The calvarium and skull base are intact. The ventricles and sulci are within normal limits. There is no mass, hematoma, midline shift, or acute infarct. Impression: No acute intracranial abnormality. Left periorbital soft tissue swelling ACT 112: Negative or not required by law. Electronically signed by: Javon House M.D. 07/20/2021 8:49 PM Knee X-Ray 07/20/21 18:51 XR knee RT 3V CLINICAL HISTORY: right knee pain COMPARISON STUDY: Right knee 02/02/2016. FINDINGS: There is a transverse fracture within the mid patella demonstrating up to 8 mm of distraction. There is an associated small lipohemarthrosis. No fractures within the distal femur, proximal tibia, or proximal fibula. There is anterior soft tissue swelling. Moderate to severe osteoarthritis at the medial compartment of the right knee. IMPRESSION: Distracted transverse fracture within the mid patella. ACT 112: Negative or not required by law. Electronically signed by: Javon House M.D. 07/20/2021 7:45 PM Discharge Plan Visit Data Chief Complaint: Fall ED Provider: Hung Escudero Discharge Problem: Fracture of right patella, Closed head injury, Laceration of left eyebrow, Acu te effusion of left ear, Vertigo Patient Disposition: Home - Self-Care Condition: Good Forms Stand Alone Forms: [facility], Virtual Emergency Department, [facility] ortant Visit Information Prescriptions Prescriptions: No Action multivitamin [Daily Multi-Vitamin] Tablet 1 tab PO DAILY RF: 0 fluticasone propionate 50 mcg/actuation spray,suspension 2 spray INTNAS DAILY RF: 0 omeprazole 20 mg capsule,delayed release(DR/EC) 20 mg PO QAM RF: 0 metformin 850 mg tablet 850 mg PO TID RF: 0 levothyroxine 175 mcg tablet 175 mcg PO QAM RF: 0 atorvastatin 10 mg tablet 10 mg PO QAM RF: 0 flurbiprofen 100 mg tablet 100 mg PO BID RF: 0 benazepril 10 mg tablet 10 mg PO QAM RF: 0 escitalopram oxalate 20 mg tablet 20 mg PO QAM RF: 0 bupropion HCl 150 mg tablet extended release 24 hr 150 mg PO QAM RF: 0 Patten 3 Fish Oil 900-1,400 mg Capsule,Delayed Release(Dr/Ec) 1 cap PO QAM RF: 0 Referrals Referrals: Lenard Cobos MD [Primary Care Provider] -
--- NOTE | 2021-07-20 19:46 | XRay Report ---
XR knee RT 3V CLINICAL HISTORY: right knee pain COMPARISON STUDY: Right knee 02/02/2016. FINDINGS: There is a transverse fracture within the mid patella demonstrating up to 8 mm of distracti on. There is an associated small lipohemarthrosis. No fractures within the distal femur, proximal tib ia, or proximal fibula. There is anterior soft tissue swelling. Moderate to severe osteoarthritis at the medial compartment of the right knee. IMPRESSION: Distracted transverse fracture within the mid patella. ACT 112: Negative or not required by law. Electronically signed by: Javon House M.D. 07/20/2021 7:45 PM
[2021-07-20] MEDS ORDERED: HYDROmorphone INJ 1 MG/ML SYRINGE IV STA ×2 (20:28→22:50)
--- NOTE | 2021-07-20 20:50 | CT Scan Report ---
HEAD CT NONCONTRAST CT DOSE: 749.40 mGy.cm HISTORY: fall, head injury TECHNIQUE: Multiaxial CT images of the head were performed without the use of intravenous contrast. A utomated exposure control was utilized for this study. A dose lowering technique was utilized adheri ng to the principles of ALARA. Comparison: Head CT 11/07/2020. Findings: There is a retention cysts again noted within the right maxillary sinus. The mastoid air ce lls are clear. Left periorbital soft tissue swelling. The globes and retrobulbar fat appear intact. T he calvarium and skull base are intact. The ventricles and sulci are within normal limits. There is n o mass, hematoma, midline shift, or acute infarct. Impression: No acute intracranial abnormality. Left periorbital soft tissue swelling ACT 112: Negative or not required by law. Electronically signed by: Javon House M.D. 07/20/2021 8:49 PM
[2021-07-20 21:55] LABS: Basophils # (auto) 0.02 K/uL (0-0.2); Basophils % (auto) 0.1 %; Eosinophils # (auto) 0.04 K/uL (0-0.5); Eosinophils % (auto) 0.2 %; Hematocrit (blood only) 33.9 % (37-47); Hemoglobin 10.5 g/dL (12.0-16.0); Immature Granulocytes # (auto) 0.05 K/uL (0.00-0.02); Immature Granulocytes % (auto) 0.3 %; Lymphocytes # (auto) 1.02 K/uL (1.2-3.4); Lymphocytes % (auto) 6.1 %; Mean Corpuscular Hemoglobin 25.7 pg (25-34); Mean Corpuscular Volume 83.1 fL (80-100); Mean Platelet Volume 10.7 fL (7.4-10.4); Monocytes # (auto) 0.72 K/uL (0.11-0.59); Monocytes % (auto) 4.3 %; Neutrophils # (auto) 14.86 K/uL (1.4-6.5); Platelet Count 266 K/uL (130-400); RDW Coefficient of Variation 14.5 % (11.5-14.5); RDW Standard Deviation 44.1 fL (36.4-46.3); Red Blood Count 4.08 M/uL (4.2-5.4); White Blood Count 16.71 K/uL (4.8-10.8)
[2021-07-20 22:33] LABS: Anion Gap 7 (3-11); BUN Creatinine Ratio 31.3 (10-20); Blood Urea Nitrogen 26 mg/dl (6-23); Calcium 8.3 mg/dl (8.5-10.1); Carbon Dioxide 25 mmol/L (21-32); Chloride 104 mmol/L (98-107); Creatinine Clr Calc Pharmacy 80.8 ml/min; Est GFR (African American) 85.2 ml/min; Est GFR (Non-African American) 73.5 ml/min; Glucose 212 mg/dl (70-99(Fasting)); Sodium 136 mmol/L (136-145)
--- NOTE | 2021-07-20 22:48 | History & Physical Report ---
Date of Service July 20, 2021 Assessment & Plan (1) Dizziness: Plan: Likely secondary to orthostasis given precipitous BP drop on attempt to stand up at the ER Rule out obstructive cardiac pathology given systolic murmur on exam Traumatic right patellar fracture hypertensive urgency secondary to discomfort hyperlipidemia on statin Rx hypothyroidism, euthyroid as of today's TSH DM2 on oral medications, reasonable control as of recent hemoglobin A1c of 7.3 J luz maria 2020 Chronic anemia, hemoglobin at baseline past tobacco abuse OBS Medical telemetry Titrate home RACHAEL inhibitor for uncontrolled hypertension TTE RE systolic murmur, dizziness Analgesia Orthopedics consult Re: Right patellar fracture N.p.o. after midnight until patient seen by orthopedics in anticipation of procedure Basal insulin adjusted for n.p.o. status, ISS BG goal 1 10-1 40, carb count coverage, update hemoglobin A1c DVT prophylaxis. SCDs Full code Patient [id number] requesting updates from providers. Ms. Javier Canela, contact #[phone]. Text document was generated using [employer] voice recognition software. It may contain grammatical or spelling errors. Kindly contact undersigned for clarification of any documentation item in question. History of Present Illness Chief Complaint: Fall, right knee pain Primary Care Provider: Lenard Cobos MD History obtained from patient, family, and records. Medical history significant for hypertension, hyperlipidemia, hypothyroidism, DM2 on oral medications, osteoarthritis, Mnire disease as per records, chronic anemia (baseline hemoglobin of 10 ), past tobacco abuse. Patient had a fall outside her home today as she was taking out her compost. She fell forward without antecedent dizziness, sensation of imbalance, chest pain, S OB. Some head trauma without LOC. Patient noted achy right knee pain and swelling after the fall. Patient could not stand up. 911 called by neighbors. Patient brought to the emergency room. Right knee x-ray showed patellar fracture. Right lower extremity splint applied and outpatient follow-up recommended with patient's orthopedic surgeon. Patient noted dizziness described as lightheadedness upon getting up from the ER bed. No spinning sensation as per patient. Patient felt diaphoretic. No chest pain, no S OB. Precipitous S BP drop from 240s to 170s noted at time of event. Medical History as above Surgical History : Knee surgery, right breast lumpectomy, shoulder surgery, DIONE Family History : DM Personal/Social history : Past tobacco abuse, occasional EtOH intake, businesswoman Allergies Allergy/AdvReac Type Severity Reaction Status Date / Time naproxen Allergy Unknown JOINT Verified 07/20/21 19:57 INFLAMMATION Home Medications Medication Instructions Recorded Confirmed Type fluticasone propionate 50 2 spray INTNAS DAILY 01/18/20 07/20/21 History mcg/actuation nasal spray,suspension levothyroxine 175 mcg tablet 175 mcg PO QAM 01/18/20 07/20/21 History metformin 850 mg tablet 850 mg PO TID 01/18/20 07/20/21 History omeprazole 20 mg capsule,delayed 20 mg PO QAM 01/18/20 07/20/21 History release multivitamin (Daily Multi-Vitamin) 1 tab PO DAILY 09/10/20 07/20/21 History atorvastatin 10 mg tablet 10 mg PO QAM 07/20/21 07/20/21 History benazepril 10 mg tablet 10 mg PO QAM 07/20/21 07/20/21 History bupropion HCl 150 mg 24 hr tablet, 150 mg PO QAM 07/20/21 07/20/21 History extended release escitalopram oxalate 20 mg tablet 20 mg PO QAM 07/20/21 07/20/21 History flurbiprofen 100 mg tablet 100 mg PO BID 07/20/21 07/20/21 History omega 2-myn-qyc-fish oil 900 1 cap PO QAM 07/20/21 07/20/21 History mg-1,400 mg capsule,delayed release Past Med/Surg History Medical History Chronic sinusitis Diabetes mellitus Hypertension Hypothyroidism Laryngopharyngeal reflux Obesity Postmenopausal atrophic vaginitis Surgical History History of bronchoscopy Hx of colonoscopy Hx of hysterectomy Hx of knee surgery Hx of lumpectomy Hx of rotator cuff surgery both shoulders Family History (Updated 09/10/20 @ 09:37 by Jesusita Licona MD, FACOG) Mother Bipolar disorder Diabetes Carotid artery disease Grandmother (Maternal) Cancer Father Hypertension Prostate cancer Denies family history of Breast cancer Colorectal cancer Social History Smoking Status: Former smoker Tobacco Type: Cigarettes Preferred Language: Venezuelan Feels Safe at Home: Yes Review of Systems Review of Systems: As per HPI, all 10 systems reviewed, all other ROS negative Physical Exam Physical Exam: GENERAL: Comfortable, obese, no respiratory distress SKIN: Normal color, warm HEENT: Contusion left orbit, pink palpebral conjunctivae, no ptosis, dry buccal mucosa NECK : Supple, no tenderness CHEST : CTA, no tenderness HEART : RRR, systolic murmur heard over left sternal border and second right intercostal space ABDOMEN: Some distention, nontender EXTREMITIES : RLE splint, abrasion over left knee, minimal LLE swelling without overt tenderness. NEUROLOGIC : Coherent, no facial asymmetry, gait and stance not assessed Results & Data Results & Data ([facility]) Vital Signs (Past 12 Hours) Vital Signs Temp Pulse Pulse Resp BP BP Pulse Ox 07/20/21 20:53 79 18 175/80 H 95 07/20/21 19:27 83 15 246/103 H 97 07/20/21 18:38 37.2 C 78 17 225/80 H 98 Laboratory Results Laboratory Results WBC 16.71 K/uL (4.8-10.8) H 07/20/21 21:47 RBC 4.08 M/uL (4.2-5.4) L 07/20/21 21:47 Hgb 10.5 g/dL (12.0-16.0) L 07/20/21 21:47 Hct 33.9 % (37-47) L 07/20/21 21:47 MCV 83.1 fL (80-100) 07/20/21 21:47 MCH 25.7 pg (25-34) 07/20/21 21:47 MCHC 31.0 g/dL (32-36) L 07/20/21 21:47 RDW Std Deviation 44.1 fL (36.4-46.3) 07/20/21 21:47 RDW Coeff of Rudi 14.5 % (11.5-14.5) 07/20/21 21:47 Plt Count 266 K/uL (130-400) 07/20/21 21:47 MPV 10.7 fL (7.4-10.4) H 07/20/21 21:47 Immature Gran % (Auto) 0.3 % 07/20/21 21:47 Neut % (Auto) 89.0 % 07/20/21 21:47 Lymph % (Auto) 6.1 % 07/20/21 21:47 [place] % (Auto) 4.3 % 07/20/21 21:47 Eos % (Auto) 0.2 % 07/20/21 21:47 Baso % (Auto) 0.1 % 07/20/21 21:47 Neut # (Auto) 14.86 K/uL (1.4-6.5) H 07/20/21 21:47 Lymph # (Auto) 1.02 K/uL (1.2-3.4) L 07/20/21 21:47 [place] # (Auto) 0.72 K/uL (0.11-0.59) H 07/20/21 21:47 Eos # (Auto) 0.04 K/uL (0-0.5) 07/20/21 21:47 Baso # (Auto) 0.02 K/uL (0-0.2) 07/20/21 21:47 Immature Gran # (Auto) 0.05 K/uL (0.00-0.02) H 07/20/21 21:47 Sodium 136 mmol/L (136-145) 07/20/21 21:47 Potassium TNP 07/20/21 21:47 Chloride 104 mmol/L (98-107) 07/20/21 21:47 Carbon Dioxide 25 mmol/L (21-32) 07/20/21 21:47 Anion Gap 7 (3-11) 07/20/21 21:47 BUN 26 mg/dl (6-23) H 07/20/21 21:47 Creatinine 0.83 mg/dl (0.6-1.2) 07/20/21 21:47 Est Cr Clr Drug Dosing 80.8 ml/min 07/20/21 21:47 Est GFR ( Amer) 85.2 ml/min 07/20/21 21:47 Est GFR (Non-Af Amer) 73.5 ml/min 07/20/21 21:47 BUN/Creatinine Ratio 31.3 (10-20) H 07/20/21 21:47 Glucose 212 mg/dl (70-99(Fasting)) H 07/20/21 21:47 Calcium 8.3 mg/dl (8.5-10.1) L 07/20/21 21:47 TSH 2.623 uIu/ml (0.300-4.500) 07/20/21 21:47 SARS-CoV-2, RNA, NAAT NEGATIVE (NEGATIVE) 07/20/21 21:[address] 07/20/21 18:[address] DOSE: 749.40 mGy.cm HISTORY: fall, head injury TECHNIQUE: Multiaxial CT images of the head were performed without the use of intravenous contrast. Automated exposure control was utilized for this study. A dose lowering technique was utilized adhering to the principles of ALARA. Comparison: Head CT 11/07/2020. Findings: There is a retention cysts again noted within the right maxillary sinus. The mastoid air cells are clear. Left periorbital soft tissue swelling. The globes and retrobulbar fat appear intact. The calvarium and skull base are intact. The ventricles and sulci are within normal limits. There is no mass, hematoma, midline shift, or acute infarct. Impression: No acute intracranial abnormality. Left periorbital soft tissue swelling ACT 112: Negative or not required by law. Electronically signed by: Javon House M.D. 07/20/2021 8:49 PM Knee X-Ray 07/20/21 18:51 XR knee RT 3V CLINICAL HISTORY: right knee pain COMPARISON STUDY: Right knee 02/02/2016. FINDINGS: There is a transverse fracture within the mid patella demonstrating up to 8 mm of distraction. There is an associated small lipohemarthrosis. No fractures within the distal femur, proximal tibia, or proximal fibula. There is anterior soft tissue swelling. Moderate to severe osteoarthritis at the medial compartment of the right knee. IMPRESSION: Distracted transverse fracture within the mid patella. ACT 112: Negative or not required by law. Electronically signed by: Javon House M.D. 07/20/2021 7:45 PM Diagnostic Findings Chest x-ray as per my interpretation widened mediastinum, atelectasis EKG as per my interpretation : Rate 75, NSR, LAD, LAFB, T wave flattening anterolateral leads
[2021-07-20] MEDS ORDERED: lisinopril 10 MG TAB PO STA (22:49)
[2021-07-20] MEDS ORDERED: PROMETHAZINE HCL 12.5 MG in SODIUM CHLORIDE 0.9% 50 ML IV PRN (22:50)
[2021-07-20 22:55] LABS: Magnesium 1.7 mg/dl (1.7-2.4); Troponin I < 0.03 ng/ml (0-0.04)
[2021-07-20] MEDS ORDERED: GLUCOSE 10 TABS/TUBE PO PRN (23:00)
[2021-07-20] MEDS ORDERED: INSULIN ASPART PER UNIT SC SCH (23:00)
[2021-07-20] MEDS ORDERED: DEXTROSE 50% 50 ML SYRINGE IV PRN (23:00)
[2021-07-20] MEDS ORDERED: ACETAMINOPHEN 325 MG TAB PO PRN (23:00)
[2021-07-20] MEDS ORDERED: GLUCAGON FOR INJ 1 MG VIAL SQ PRN (23:00)
[2021-07-20] MEDS ORDERED: INSULIN GLARGINE SOLOSTAR 100 UNITS/ML 3 ML PEN SC STA (23:00)
[2021-07-20] MEDS ORDERED: CARBOHYDRATES FOR HYPOGLYCEMIA PO PRN (23:00)
[2021-07-20] MEDS ORDERED: LORazepam 0.25 MG/0.5 ML VIAL IV STA (23:00)
[2021-07-20 23:29] LABS: Albumin Level 3.4 gm/dl (3.4-5.0); Bilirubin Direct 0.1 mg/dl (0-0.2); Bilirubin,Total 0.9 mg/dl (0.2-1.0); Potassium 4.6 mmol/L (3.5-5.1); Total Protein 5.6 gm/dl (6.0-8.3)
[2021-07-21] MEDS ORDERED: CALCIUM GLUCONATE 10% 1,000 MG in DEXTROSE 5% 50 ML IV ONE (00:37)
[2021-07-21] MEDS ORDERED: STAT IV STA (00:37)
[2021-07-21] MEDS ORDERED: SODIUM CHLORIDE 0.9% 1000ML 1,000 ML IV SCH (00:48)
[2021-07-21] MEDS ORDERED: GLUCOSE 40% GEL 15 GM TUBE PO PRN (03:25)
[2021-07-21] MEDS: oxyCODONE HCL IR 5 MG TAB (IMMEDIATE RELEASE) PO PRN ×2 (04:15→12:40)
[2021-07-21 06:22] LABS: Basophils # (auto) 0.02 K/uL (0-0.2); Basophils % (auto) 0.2 %; Eosinophils % (auto) 1.1 %; Hematocrit (blood only) 30.1 % (37-47); Hemoglobin 9.8 g/dL (12.0-16.0); Immature Granulocytes # (auto) 0.02 K/uL (0.00-0.02); Immature Granulocytes % (auto) 0.2 %; Lymphocytes # (auto) 1.81 K/uL (1.2-3.4); Mean Corpuscular Hemoglobin 27.1 pg (25-34); Mean Corpuscular Hgb Conc 32.6 g/dL (32-36); Mean Corpuscular Volume 83.1 fL (80-100); Mean Platelet Volume 10.6 fL (7.4-10.4); Monocytes # (auto) 0.94 K/uL (0.11-0.59); Monocytes % (auto) 9.9 %; Neutrophils # (auto) 6.62 K/uL (1.4-6.5); Neutrophils % (auto) 69.6 %; Platelet Count 274 K/uL (130-400); RDW Coefficient of Variation 14.5 % (11.5-14.5); RDW Standard Deviation 43.9 fL (36.4-46.3); Red Blood Count 3.62 M/uL (4.2-5.4); White Blood Count 9.51 K/uL (4.8-10.8)
[2021-07-21] MEDS: LEVOTHYROXINE SODIUM 175 MCG TABLET PO SCH (06:29)
[2021-07-21 06:48] LABS: Calcium 8.2 mg/dl (8.5-10.1); Creatinine Clr Calc Pharmacy 71.2 ml/min; Est GFR (African American) 74.2 ml/min; Potassium 4.3 mmol/L (3.5-5.1)
[2021-07-21 07:20] LABS: Estimated Average Glucose 169 mg/dl; Hemoglobin A1C 7.5 % (4.5-5.6)
[2021-07-21] MEDS: INSULIN ASPART PER UNIT SC SCH ×5 (07:22→21:16)
[2021-07-21 07:47] LABS: Appearance Urine Clear (Clear); Bilirubin Urine Negative (Negative); Blood Urine Negative (Negative); Color Urine Yellow; Glucose Urine UA 2+ (Negative); Ketones Urine 1+ (Negative); Leukocyte Esterase Urine Negative (Negative); Nitrite Urine Negative (Negative); Protein Urine Negative (Negative); Specific Gravity Urine 1.026 (1.000-1.030); Urobilinogen Urine Negative (Negative)
[2021-07-21] MEDS: HYDROmorphone INJ 0.5 MG/0.5 ML SYR IV PRN ×2 (07:55→21:05)
[2021-07-21] MEDS: PANTOprazole 40 MG TAB PO SCH (07:56)
[2021-07-21] MEDS: MULTIVITAMIN TAB PO SCH (07:56)
--- NOTE | 2021-07-21 08:04 | XRay Report ---
XR chest 1V portable CLINICAL HISTORY: Hypertension. Evaluate cardiopulmonary status.. COMPARISON STUDY: No previous studies for comparison. TECHNIQUE: 1 view of the chest FINDINGS: Single frontal view of the chest demonstrates the cardiomediastinal silhouette to be within normal li mits. The lungs are clear of alveolar opacities. There is no evidence for pleural effusion. There is no evidence for vascular congestion. There is no acute osseous pathology. IMPRESSION: No acute cardiopulmonary disease. ACT 112: Negative or not required by law. Electronically signed by: Farhan Hooper M.D. 07/21/2021 8:02 AM
--- NOTE | 2021-07-21 08:12 | Orthopedic Consultation ---
Date of Consultation July 21, 2021 Assessment & Plan (1) Fracture of right patella: Present on Admission?: Yes Case reviewed with Dr Vera. Patient will require surgical fixation of right patellar fracture. Case added on to follow Dr. Vera's first case this morning pending medical clearnace. Plan was discussed with patient who is in agreement with surgery today. Pt has been NPO since last night, keep NPO Will obtain written consent Need medical clearance 2g Ancef intra-op IV LR fluids Void out of town collection clerk to OR DVT prophylaxis: SCDS inpatient, hold anticoagulants for OR Pain control: Per primary Supervising Physician Co-Signing Physician Notes I Dr. Vera, saw and examined the patient and agree with the above findings and plan of care which I formulated and discussed with my PA. Patient understands the risks, is asymptomatic, and tested negative for COVID- 19. My PA spent 20 minutes with the patient. Apparently the patient ate solid food at 7 am; will plan OR later today at 3 pm. I spent 40 minutes, with the patient, reviewing the chart, and x-rays, talking with the family via telephone, communicating with the primary team/anesthesia/OR, and obtaining consent. History of Present Illness Reason for Consultation: right patellar fracture Requesting Physician: Rosa Vera MD Attending Physician: Patt Kumar, History of Present Illness Vika is a 65-year-old female with medical history significant for Vertigo, hypothyroidism, hypertension, DM2, CKD3, chronic sinusitis and chronic rhinitis who was admitted last night for ambulatory dysfunction following a fall with a subsequent right patellar fracture. Orthopedics was consulted for further evaluation. She was placed in a knee immobilizer and given a walker. She states that she fell last evening and hit her knee. She was unable to get up for quit some time. She did hit her head but she denies any NOBLE or blurry vision. Labs, EKG and Head CT were unremarkable. She says that she is overall doing okay this morning. Her pain has been controlled through the night. She is however starting to get increased pain and is asking for more pain medication. She has seen Dr. Singer in the past for her knee and has been trying gel injections for her end-stage arthritis. She denies any ankle or hip complaints. She denies any numbness or tingling. She has been NPO since midnight last night. She denies any anti-coagulation use. Allergies Allergy/AdvReac Type Severity Reaction Status Date / Time naproxen Allergy Unknown JOINT Verified 07/20/21 19:57 INFLAMMATION Home Medications Medication Instructions Recorded Confirmed Type fluticasone propionate 50 2 spray INTNAS DAILY 01/18/20 07/20/21 History mcg/actuation nasal spray,suspension levothyroxine 175 mcg tablet 175 mcg PO QAM 01/18/20 07/20/21 History metformin 850 mg tablet 850 mg PO TID 01/18/20 07/20/21 History omeprazole 20 mg capsule,delayed 20 mg PO QAM 01/18/20 07/20/21 History release multivitamin (Daily Multi-Vitamin) 1 tab PO DAILY 09/10/20 07/20/21 History atorvastatin 10 mg tablet 10 mg PO QAM 07/20/21 07/20/21 History benazepril 10 mg tablet 10 mg PO QAM 07/20/21 07/20/21 History bupropion HCl 150 mg 24 hr tablet, 150 mg PO QAM 07/20/21 07/20/21 History extended release escitalopram oxalate 20 mg tablet 20 mg PO QAM 07/20/21 07/20/21 History flurbiprofen 100 mg tablet 100 mg PO BID 07/20/21 07/20/21 History omega 6-hxy-wta-fish oil 900 1 cap PO QAM 07/20/21 07/20/21 History mg-1,400 mg capsule,delayed release Patient History Medical History Chronic sinusitis Diabetes mellitus Hypertension Hypothyroidism Laryngopharyngeal reflux Obesity Postmenopausal atrophic vaginitis Surgical History History of bronchoscopy Hx of colonoscopy Hx of hysterectomy Hx of knee surgery Hx of lumpectomy Hx of rotator cuff surgery both shoulders Family History Mother Bipolar disorder Diabetes Carotid artery disease Grandmother (Maternal) Cancer Father Hypertension Prostate cancer Denies family history of Breast cancer Colorectal cancer Social History Smoking Status: Former smoker Tobacco Type: Cigarettes Do You Dip or Chew Tobacco: No; Hx Alcohol Use: Yes Hx Substance Use: No Preferred Language: Chadian Communication Ability: Effective Warehouse Order Puller Required: No Beliefs That Will Affect Care: None Current Living Situation: Spouse Other Information That Helps Us Care for You: No Feels Safe at Home: Yes Safety Concerns: Feels Safe At This Time Assistive Devices: Walker Review of Systems Review of Systems: Per HPI Physical Exam Physical Exam: General: Patient is laying in bed AA&O x3, NAD, Calm and cooperative during exam Right LE: Knee immobolizer in place fitting appropriately. Removed briefly for exam. Skin in tact with no lesions, lacerations, ecchymosis. Mild swelling noted. Patient has full ROM of ankle and all 5 toes. Knee ROM and strength deferred due to injury. 5/5 strength with DF/PF. NVI with sensation to light touch and 2+ DP pulse. Results & Data ([facility]) Vital Signs (Past 12 Hours) Vital Signs Temp Pulse Pulse Pulse Resp BP BP 07/21/21 07:17 69 07/21/21 03:30 66 07/21/21 03:05 36.8 C 75 16 138/78 07/21/21 02:36 66 H 120/56 L 07/21/21 01:05 74 12 111/59 L 07/20/21 22:55 75 15 124/63 07/20/21 20:53 79 18 175/80 H Pulse Ox 07/21/21 07:17 07/21/21 03:30 07/21/21 03:05 97 07/21/21 02:36 98 07/21/21 01:05 97 07/20/21 22:55 97 07/20/21 20:53 95 Laboratory Results 07/21/21 07/21/21 07/21/21 Range/Units 07:32 07:10 05:49 WBC (4.8-10.8) K/uL RBC (4.2-5.4) M/uL Hgb (12.0-16.0) g/dL Hct (37-47) % MCV (80-100) fL MCH (25-34) pg MCHC (32-36) g/dL RDW Std Deviation (36.4-46.3) fL RDW Coeff of Rudi (11.5-14.5) % Plt Count (130-400) K/uL MPV (7.4-10.4) fL Immature Gran % (Auto) % Neut % (Auto) % Lymph % (Auto) % [place] % (Auto) % Eos % (Auto) % Baso % (Auto) % Neut # (Auto) (1.4-6.5) K/uL Lymph # (Auto) (1.2-3.4) K/uL [place] # (Auto) (0.11-0.59) K/uL Eos # (Auto) (0-0.5) K/uL Baso # (Auto) (0-0.2) K/uL Immature Gran # (Auto) (0.00-0.02) K/uL Sodium 138 (136-145) mmol/L Potassium 4.3 Chloride 105 (98-107) mmol/L Carbon Dioxide 29 (21-32) mmol/L Anion Gap 4 (3-11) BUN 26 H (6-23) mg/dl Creatinine 0.93 (0.6-1.2) mg/dl Est Cr Clr Drug Dosing 71.2 ml/min Est GFR ( Amer) 74.2 ml/min Est GFR (Non-Af Amer) 64.0 ml/min BUN/Creatinine Ratio 28.0 H (10-20) Glucose 153 H (70-99(Fasting)) mg/dl POC Glucose 142 H (70-99) mg/dl Estimat Average Glucose mg/dl Hemoglobin A1c (4.5-5.6) % Calcium 8.2 L (8.5-10.1) mg/dl Magnesium (1.7-2.4) mg/dl Total Bilirubin (0.2-1.0) mg/dl Direct Bilirubin (0-0.2) mg/dl AST (13-39) U/L ALT (7-52) U/L Alkaline Phosphatase (34-104) U/L Troponin I (0-0.04) ng/ml Total Protein (6.0-8.3) gm/dl Albumin (3.4-5.0) gm/dl TSH (0.300-4.500) uIu/ml Urine Color Yellow Urine Appearance Clear (Clear) Urine pH 5.0 (4.5-7.5) Ur Specific [place] 1.026 (1.000-1.030) Urine Protein Negative (Negative) Urine Glucose (UA) 2+ H (Negative) Urine Ketones 1+ H (Negative) Urine Blood Negative (Negative) Urine Nitrite Negative (Negative) Urine Bilirubin Negative (Negative) Urine Urobilinogen Negative (Negative) Ur Leukocyte Esterase Negative (Negative) SARS-CoV-2, RNA, NAAT (NEGATIVE) 07/21/21 07/20/21 07/20/21 Range/Units 05:49 23:18 23:01 WBC 9.51 (4.8-10.8) K/uL RBC 3.62 L (4.2-5.4) M/uL Hgb 9.8 L (12.0-16.0) g/dL Hct 30.1 L (37-47) % MCV 83.1 (80-100) fL MCH 27.1 (25-34) pg MCHC 32.6 (32-36) g/dL RDW Std Deviation 43.9 (36.4-46.3) fL RDW Coeff of Rudi 14.5 (11.5-14.5) % Plt Count 274 (130-400) K/uL MPV 10.6 H (7.4-10.4) fL Immature Gran % (Auto) 0.2 % Neut % (Auto) 69.6 % Lymph % (Auto) 19.0 % [place] % (Auto) 9.9 % Eos % (Auto) 1.1 % Baso % (Auto) 0.2 % Neut # (Auto) 6.62 H (1.4-6.5) K/uL Lymph # (Auto) 1.81 (1.2-3.4) K/uL [place] # (Auto) 0.94 H (0.11-0.59) K/uL Eos # (Auto) 0.10 (0-0.5) K/uL Baso # (Auto) 0.02 (0-0.2) K/uL Immature Gran # (Auto) 0.02 (0.00-0.02) K/uL Sodium (136-145) mmol/L Potassium 4.6 Chloride (98-107) mmol/L Carbon Dioxide (21-32) mmol/L Anion Gap (3-11) BUN (6-23) mg/dl Creatinine (0.6-1.2) mg/dl Est Cr Clr Drug Dosing ml/min Est GFR ( Amer) ml/min Est GFR (Non-Af Amer) ml/min BUN/Creatinine Ratio (10-20) Glucose (70-99(Fasting)) mg/dl POC Glucose 219 H (70-99) mg/dl Estimat Average Glucose mg/dl Hemoglobin A1c (4.5-5.6) % Calcium (8.5-10.1) mg/dl Magnesium (1.7-2.4) mg/dl Total Bilirubin 0.9 (0.2-1.0) mg/dl Direct Bilirubin 0.1 (0-0.2) mg/dl AST 15 (13-39) U/L ALT 19 (7-52) U/L Alkaline Phosphatase 77 (34-104) U/L Troponin I (0-0.04) ng/ml Total Protein 5.6 L (6.0-8.3) gm/dl Albumin 3.4 (3.4-5.0) gm/dl TSH (0.300-4.500) uIu/ml Urine Color Urine Appearance (Clear) Urine pH (4.5-7.5) Ur Specific [place] (1.000-1.030) Urine Protein (Negative) Urine Glucose (UA) (Negative) Urine Ketones (Negative) Urine Blood (Negative) Urine Nitrite (Negative) Urine Bilirubin (Negative) Urine Urobilinogen (Negative) Ur Leukocyte Esterase (Negative) SARS-CoV-2, RNA, NAAT (NEGATIVE) 07/20/21 07/20/21 07/20/21 Range/Units 21:47 21:47 21:47 WBC (4.8-10.8) K/uL RBC (4.2-5.4) M/uL Hgb (12.0-16.0) g/dL Hct (37-47) % MCV (80-100) fL MCH (25-34) pg MCHC (32-36) g/dL RDW Std Deviation (36.4-46.3) fL RDW Coeff of Rudi (11.5-14.5) % Plt Count (130-400) K/uL MPV (7.4-10.4) fL Immature Gran % (Auto) % Neut % (Auto) % Lymph % (Auto) % [place] % (Auto) % Eos % (Auto) % Baso % (Auto) % Neut # (Auto) (1.4-6.5) K/uL Lymph # (Auto) (1.2-3.4) K/uL [place] # (Auto) (0.11-0.59) K/uL Eos # (Auto) (0-0.5) K/uL Baso # (Auto) (0-0.2) K/uL Immature Gran # (Auto) (0.00-0.02) K/uL Sodium 136 (136-145) mmol/L Potassium TNP Chloride 104 (98-107) mmol/L Carbon Dioxide 25 (21-32) mmol/L Anion Gap 7 (3-11) BUN 26 H (6-23) mg/dl Creatinine 0.83 (0.6-1.2) mg/dl Est Cr Clr Drug Dosing 80.8 ml/min Est GFR ( Amer) 85.2 ml/min Est GFR (Non-Af Amer) 73.5 ml/min BUN/Creatinine Ratio 31.3 H (10-20) Glucose 212 H (70-99(Fasting)) mg/dl POC Glucose (70-99) mg/dl Estimat Average Glucose 169 mg/dl Hemoglobin A1c 7.5 H (4.5-5.6) % Calcium 8.3 L (8.5-10.1) mg/dl Magnesium 1.7 (1.7-2.4) mg/dl Total Bilirubin (0.2-1.0) mg/dl Direct Bilirubin (0-0.2) mg/dl AST (13-39) U/L ALT (7-52) U/L Alkaline Phosphatase (34-104) U/L Troponin I < 0.03 (0-0.04) ng/ml Total Protein (6.0-8.3) gm/dl Albumin (3.4-5.0) gm/dl TSH 2.623 (0.300-4.500) uIu/ml Urine Color Urine Appearance (Clear) Urine pH (4.5-7.5) Ur Specific [place] (1.000-1.030) Urine Protein (Negative) Urine Glucose (UA) (Negative) Urine Ketones (Negative) Urine Blood (Negative) Urine Nitrite (Negative) Urine Bilirubin (Negative) Urine Urobilinogen (Negative) Ur Leukocyte Esterase (Negative) SARS-CoV-2, RNA, NAAT (NEGATIVE) 07/20/21 07/20/21 Range/Units 21:47 21:42 WBC 16.71 H (4.8-10.8) K/uL RBC 4.08 L (4.2-5.4) M/uL Hgb 10.5 L (12.0-16.0) g/dL Hct 33.9 L (37-47) % MCV 83.1 (80-100) fL MCH 25.7 (25-34) pg MCHC 31.0 L (32-36) g/dL RDW Std Deviation 44.1 (36.4-46.3) fL RDW Coeff of Rudi 14.5 (11.5-14.5) % Plt Count 266 (130-400) K/uL MPV 10.7 H (7.4-10.4) fL Immature Gran % (Auto) 0.3 % Neut % (Auto) 89.0 % Lymph % (Auto) 6.1 % [place] % (Auto) 4.3 % Eos % (Auto) 0.2 % Baso % (Auto) 0.1 % Neut # (Auto) 14.86 H (1.4-6.5) K/uL Lymph # (Auto) 1.02 L (1.2-3.4) K/uL [place] # (Auto) 0.72 H (0.11-0.59) K/uL Eos # (Auto) 0.04 (0-0.5) K/uL Baso # (Auto) 0.02 (0-0.2) K/uL Immature Gran # (Auto) 0.05 H (0.00-0.02) K/uL Sodium (136-145) mmol/L Potassium Chloride (98-107) mmol/L Carbon Dioxide (21-32) mmol/L Anion Gap (3-11) BUN (6-23) mg/dl Creatinine (0.6-1.2) mg/dl Est Cr Clr Drug Dosing ml/min Est GFR ( Amer) ml/min Est GFR (Non-Af Amer) ml/min BUN/Creatinine Ratio (10-20) Glucose (70-99(Fasting)) mg/dl POC Glucose (70-99) mg/dl Estimat Average Glucose mg/dl Hemoglobin A1c (4.5-5.6) % Calcium (8.5-10.1) mg/dl Magnesium (1.7-2.4) mg/dl Total Bilirubin (0.2-1.0) mg/dl Direct Bilirubin (0-0.2) mg/dl AST (13-39) U/L ALT (7-52) U/L Alkaline Phosphatase (34-104) U/L Troponin I (0-0.04) ng/ml Total Protein (6.0-8.3) gm/dl Albumin (3.4-5.0) gm/dl TSH (0.300-4.500) uIu/ml Urine Color Urine Appearance (Clear) Urine pH (4.5-7.5) Ur Specific [place] (1.000-1.030) Urine Protein (Negative) Urine Glucose (UA) (Negative) Urine Ketones (Negative) Urine Blood (Negative) Urine Nitrite (Negative) Urine Bilirubin (Negative) Urine Urobilinogen (Negative) Ur Leukocyte Esterase (Negative) SARS-CoV-2, RNA, NAAT NEGATIVE (NEGATIVE) Diagnostic Findings x- rays reviewed show acute, traumatic transverse fracture of the right patella with displacement and significant degenerative changes. (1) Fracture of right patella Encounter type: initial encounter Fracture alignment: displaced Fracture morphology: transverse Fracture type: closed Qualified Code(s): S82.031A - Displaced transverse fracture of right patella, initial encounter for closed fracture
[2021-07-21] MEDS ORDERED: LACTATED RINGER'S 1,000 ML IV SCH (08:15)
[2021-07-21] MEDS: ESCITALOPRAM OXALATE 20 MG TAB PO SCH (09:21)
[2021-07-21] MEDS: FLUTICASONE PROPIONATE NA SPR 16 GM BTL SCH (09:21)
[2021-07-21] MEDS: buPROPion XL 150 MG TABCR PO SCH (09:21)
[2021-07-21] MEDS: ATORVASTATIN 10 MG TAB PO SCH (09:21)
[2021-07-21] MEDS: ENALAPRIL MALEATE 10 MG TAB PO SCH (09:21)
--- NOTE | 2021-07-21 09:28 | Electrocardiogram Report ---
Test Reason : Blood Pressure : / mmHG Vent. Rate : 076 BPM Atrial Rate : 076 BPM P-R Int : 158 ms QRS Dur : 084 ms QT Int : 432 ms P-R-T Axes : 052 -06 041 degrees QTc Int : 486 ms Poor data quality, interpretation may be adversely affected Normal sinus rhythm Nonspecific T wave abnormality Abnormal ECG When compared with ECG of 26-MAR-2015 08:16, Nonspecific T wave abnormality now evident in Lateral leads Confirmed by Sohan Constantino ([id number]) on 07/21/2021 9:28:02 AM Referred By: REFERRED SELF Confirmed By:Sohan Constantino
--- NOTE | 2021-07-21 09:38 | Anesthesiology Consultation ---
Date of Service July 21, 2021 Assessment & Plan Chart Review Chart Review: Acceptable Risk for Surgery and Patient NOT seen in Pre Admission Testing Consults Requested none ASA ASA3 History Surgery Operation Date: 07/21/21 11:00 Proposed Procedures p Right Open Reduction Internal Fixation Patella - Alvarez Angi Vera MD Height/Weight Height: 5 ft 7 in Weight: 97.1 kg Allergies Allergy/AdvReac Type Severity Reaction Status Date / Time naproxen Allergy Unknown JOINT Verified 07/20/21 19:57 INFLAMMATION Medications Home Medications Medication Instructions Recorded Confirmed Last Taken fluticasone propionate 50 2 spray INTNAS DAILY 01/18/20 07/20/21 07/20/21 mcg/actuation nasal spray,suspension levothyroxine 175 mcg tablet 175 mcg PO QAM 01/18/20 07/20/21 07/20/21 metformin 850 mg tablet 850 mg PO TID 01/18/20 07/20/21 07/20/21 omeprazole 20 mg capsule,delayed 20 mg PO QAM 01/18/20 07/20/21 07/20/21 release multivitamin (Daily Multi-Vitamin) 1 tab PO DAILY 09/10/20 07/20/21 07/20/21 atorvastatin 10 mg tablet 10 mg PO QAM 07/20/21 07/20/21 07/20/21 benazepril 10 mg tablet 10 mg PO QAM 07/20/21 07/20/21 07/20/21 bupropion HCl 150 mg 24 hr tablet, 150 mg PO QAM 07/20/21 07/20/21 07/20/21 extended release escitalopram oxalate 20 mg tablet 20 mg PO QAM 07/20/21 07/20/21 07/20/21 flurbiprofen 100 mg tablet 100 mg PO BID 07/20/21 07/20/21 07/20/21 omega 6-pfd-gbu-fish oil 900 1 cap PO QAM 07/20/21 07/20/21 07/20/21 mg-1,400 mg capsule,delayed release Active Medications Generic Name Dose Route Start Last Admin Trade Name Freq PRN Reason Stop Dose Admin Atorvastatin Calcium 10 mg 07/21/21 09:00 07/21/21 09:21 Atorvastatin 10 Mg Tab PO 08/20/21 08:59 10 mg QAM PASCUAL Administration Bupropion HCl 150 mg 07/21/21 09:00 07/21/21 09:21 Bupropion Xl 150 Mg Tabcr PO 08/20/21 08:59 150 mg QAM PASCUAL Administration Enalapril Maleate 20 mg 07/21/21 09:00 07/21/21 09:21 Enalapril Maleate 10 Mg Tab PO 08/20/21 08:59 20 mg QAM PASCUAL Administration Escitalopram Oxalate 20 mg 07/21/21 09:00 07/21/21 09:21 Escitalopram Oxalate 20 Mg Tab PO 08/20/21 08:59 20 mg QAM PASCUAL Administration Fluticasone Propionate 2 sprays 07/21/21 09:00 07/21/21 09:21 Fluticasone Propionate Na Spr 16 Gm Btl NA 08/20/21 08:59 Not Given DAILY PASCUAL Hydromorphone HCl 1 mg 07/20/21 23:00 07/21/21 07:55 Hydromorphone Inj 0.5 Mg/0.5 Ml Syr IV 08/03/21 22:59 1 mg Q4H PRN Administration Pain Sodium Chloride 1,000 mls @ 50 mls/hr 07/21/21 00:48 07/21/21 01:05 Nss 1000ml IV 08/20/21 00:47 50 mls/hr .Q20H PASCUAL Administration Lactated Ringer's 1,000 mls @ 80 mls/hr 07/21/21 08:15 07/21/21 09:21 Lr IV 08/20/21 08:14 80 mls/hr .[id number] PASCUAL Administration Insulin Aspart 0 units 07/21/21 06:00 07/21/21 07:22 Insulin Aspart Per Unit SC 08/20/21 05:59 1 units Q6 PASCUAL Administration Levothyroxine Sodium 175 mcg 07/21/21 06:30 07/21/21 06:29 Levothyroxine Sodium 175 Mcg Tablet PO 08/20/21 06:29 175 mcg DAILYBB PASCUAL Administration Multivitamins 1 tab 07/21/21 09:00 07/21/21 07:56 Multivitamin Tab PO 08/20/21 08:59 1 tab DAILY PASCUAL Administration Oxycodone HCl 5 - 10 mg 07/20/21 23:00 07/21/21 04:15 Oxycodone Hcl Ir 5 Mg Tab (Immediate Release) PO 08/03/21 22:59 5 mg QID PRN Administration Pain Pantoprazole Sodium 40 mg 07/21/21 09:00 07/21/21 07:56 Pantoprazole 40 Mg Tab PO 08/20/21 08:59 40 mg QAM PASCUAL Administration Past Medical History Medical History Chronic sinusitis Diabetes mellitus Hypertension Hypothyroidism Laryngopharyngeal reflux Obesity Postmenopausal atrophic vaginitis Exercise / Class Metabolic Activity II 4-5 Yardwork/Stairs/Walk up hill Past Family History Family History Mother Bipolar disorder Diabetes Carotid artery disease Grandmother (Maternal) Cancer Father Hypertension Prostate cancer Denies family history of Breast cancer Colorectal cancer Past Surgical History Surgical History History of bronchoscopy Hx of colonoscopy Hx of hysterectomy Hx of knee surgery Hx of lumpectomy Hx of rotator cuff surgery both shoulders Past Anesthesia History No Hx of Anesthesia Complications and No Family Hx of Anesthesia Complications History of PONV No Hx of PONV and No Hx of Motion Sickness Social History Smoking Status: Former smoker Do You Dip or Chew Tobacco: No Hx Alcohol Use: Yes alcohol intake frequency: holidays/special occasions only Hx Substance Use: No Physical Exam Vital Signs Last Vital Signs Temp 36.8 C 07/21/21 07:55 Pulse 71 07/21/21 07:55 Resp 18 07/21/21 07:55 BP 134/74 07/21/21 07:55 Pulse Ox 94 07/21/21 07:55 Testing Laboratory Results 07/21/21 05:49 07/21/21 05:49 Hemoglobin A1c 7.5 % (4.5-5.6) H 07/20/21 21:47 Urine Color Yellow 07/21/21 07:32 Urine Appearance Clear (Clear) 07/21/21 07:32 Urine pH 5.0 (4.5-7.5) 07/21/21 07:32 Ur Specific [place] 1.026 (1.000-1.030) 07/21/21 07:32 Urine Protein Negative (Negative) 07/21/21 07:32 Urine Glucose (UA) 2+ (Negative) H 07/21/21 07:32 Urine Ketones 1+ (Negative) H 07/21/21 07:32 Urine Nitrite Negative (Negative) 07/21/21 07:32 Ur Leukocyte Esterase Negative (Negative) 07/21/21 07:32 07/21/21 07/20/21 07:10 23:18 POC Glucose 142 H 219 H Electrocardiogram Date: 07/20/21 Findings: + NSR @ (at 75;) and + NSST changes Chest X-Ray Date: 07/20/21 Findings: + NAD
[2021-07-21] MEDS ORDERED: PROPOFOL IV EMULSION 10 MG/ML 20 ML VIAL IV ONE (10:02)
[2021-07-21] MEDS ORDERED: LIDOCAINE 2% 2 ML VIAL/AMP(20MG/ML) INFIL ONE (10:02)
[2021-07-21] MEDS ORDERED: fentaNYL citrate 100 MCG/2 ML VIAL ONE (10:02)
[2021-07-21] MEDS ORDERED: MIDAZOLAM HCL 1 MG/ML 2ML VIAL ONE (10:04)
--- NOTE | 2021-07-21 10:20 | Operative Report ---
Post Operative Report Pre & Post Diagnosis Operation Date: 07/21/21 11:00 <No data on this case meets the specified criteria> I identified the patient and participated in the time-out.: Yes Procedure Operation Date: 07/21/21 11:00 <No data on this case meets the specified criteria> Surgeon Dr. Alvarez Vera Management Rep Rachna Wells PA-C and Dr. Vidal Sheriff Estimated Blood Loss 100 Findings Consistent with Post-Op Diagnosis Specimens none Description of Procedure Pt was taken to operating room, placed under spinal anesthesia. Pt was given 2mg Ancef IV. Prepped and draped in sterile fashion. I was present during the case and assisted with positioning, instrumentation, closure and dressings. Fellow was also present during the entire case. Please see Dr. Vera's op report for further detail. Pt was awake and transferred to PACU in stable condition I attest to the content of the Intraoperative Record and any orders documented therein. Any exceptions are noted below.
[2021-07-21] MEDS ORDERED: BUPIVACAINE 0.5 % 5 MG/1 ML MPF 30ML VIAL ONE (10:33)
[2021-07-21] MEDS ORDERED: LIDOCAINE 1%/EPINEPHRINE 1:100,000 50 ML VIAL ONE (10:34)
--- NOTE | 2021-07-21 10:36 | Operative Report ---
Post Operative Report Pre & Post Diagnosis Operation Date: 07/21/21 11:00 <No data on this case meets the specified criteria> I identified the patient and participated in the time-out.: Yes Procedure Operation Date: 07/21/21 11:00 <No data on this case meets the specified criteria> Surgeon Rachna Wells PA-C I attest to the content of the Intraoperative Record and any orders documented therein. Any exceptions are noted below.
--- NOTE | 2021-07-21 10:44 | Hospitalist Progress Note ---
Date of Service July 21, 2021 Assessment & Plan (1) Dysequilibrium: Plan: Dysequilibrium, no orthostatics 2/2 pain to stand. Evidently had a precipitous drop in the ER on BP, however, cannot find documentation of orthostatics. BP currently normal. Reports dysequilibrium with diminished hearing loss prior to this event. Has baseline hearing loss with recent worsening. ?labyrinthitis-may benefit from steroids. Will consult neurology for thoughts. Patient notes having issues with this type of thing in the past "but it gets better after a few weeks to months." (2) Fracture of right patella: Plan: traumatic right fracture with plans for surgery today. No further workup required prior to surgery. Standard DVT prophylaxis should be given when ok per Ortho. Activity restrictions per ortho. Good functional status at baseline, diabetic not on insulin and diabetes is controlled, creatinine is within normal limits. Low risk for perioperative complications. (3) Laceration of left eyebrow: Plan: supportive measures. (4) Anemia: Plan: Hb 12 at baseline. Reported bruising at site of right knee injury, possible acute blood loss anemia? Cont to monitor and surgery today. (5) DMII (diabetes mellitus, type 2): Plan: A1C uncontrolled at 7.5 with goal <6.5. For now, hold metformin and continue with basal bolus insulin while hospitalized. Goal is euglycemia for optimal post operative wound healing. (6) Hypertensive urgency: Plan: Situational with severe pain on admission. Was as high as 240 systolic in the ER. Cont ACEI per home regimen. (7) DVT prophylaxis: Plan: SCDs in preop setting Full Code [place]po- [place] of country, states daughter is aware she is here. Pending PT/OT and orthopedic recommendations post operatively. Patt Kumar DO [facility] Hospitalist Admission and Anticipated Discharge Date Admission Date: July 21, 2021 Subjective 65 yo F presents after a fall and traumatic knee fracture unable to walk fell outside around 4pm she has been feeling dysequilibrium over last 3 days with quick improvement states that she had flu in Nov and since that time she has had diminished hearing in the left ear-has hearing aids at baseline. denies tinnitus, neck pain, fevers, chills, ear pain or fullness. Reports some sinus congestion/runny nose denies stroke like symptoms denies chest pain or SOB at rest or with activity--good functional status-walks her dog regularly, dances, etc. no cardiac history reports she had an episode similar to this in the past when she was taking off her NSAID therapy, but denies this being the case recently and denies any recent medication changes Review of Systems Review of Systems: All systems were reviewed and negative except as indicated above. Physical Exam Physical Exam: CONSTITUTIONAL: WNWD, vitals as above, generally well- appearing, NAD EYES: pupils are round and equal bilaterally, normal conjunctivae, no scleral icterus ENT: external ear and nose normal, oropharynx clear, no TM abnormality, no middle ear fluid seen, no maxillary or ethmoid sinus tenderness NECK: trachea midline, no lymphadenopathy RESPIRATORY: clear to auscultation bilaterally, no crackles, rales or wheezes, normal respiratory effort CARDIOVASCULAR: regular rate and rhythm, S1 and 2 heard without murmurs, gallops or rubs, no JVD, no peripheral edema CHEST: inspection of chest was normal GASTROINTESTINAL: soft, nontender, ND, no guarding MUSCULOSKELETAL: strength 5/5 throughout x right leg not examined as this is in a hard brace, head is normocephalic and atraumatic, SKIN: warm and dry, ecchymosis reported around left knee however, cannot examine with brace in place. NEUROLOGIC: No facial palsy, no dysarthria. CN 2-12 grossly intact, no sensory deficit, normal cognition, normal speech, no tremor. No gross focal deficit. PSYCHIATRIC: alert cooperative and oriented to person, place and time. (easily falls asleep because of taking recent pain medication) Euthymic mood, makes good eye contact, language grossly intact, recent and remote memory grossly intact. Results & Data Results & Data ([place]) Vital Signs (Past 12 Hours) Vital Signs Temp Pulse Pulse Pulse Resp BP BP 07/21/21 07:55 36.8 C 71 18 134/74 07/21/21 07:17 69 07/21/21 03:30 66 07/21/21 03:05 36.8 C 75 16 138/78 07/21/21 02:36 66 H 120/56 L 07/21/21 01:05 74 12 111/59 L 07/20/21 22:55 75 15 124/63 Pulse Ox 07/21/21 07:55 94 07/21/21 07:17 07/21/21 03:30 07/21/21 03:05 97 07/21/21 02:36 98 07/21/21 01:05 97 07/20/21 22:55 97 Laboratory Results Short CBC 07/20/21 07/21/21 Range/Units 21:47 05:49 WBC 16.71 H 9.51 (4.8-10.8) K/uL Hgb 10.5 L 9.8 L (12.0-16.0) g/dL Hct 33.9 L 30.1 L (37-47) % Plt Count 266 274 (130-400) K/uL BMP 07/20/21 07/20/21 07/21/21 21:47 23:01 05:49 Sodium 136 138 Potassium TNP 4.6 4.3 Chloride 104 105 Carbon Dioxide 25 29 BUN 26 H 26 H Creatinine 0.83 0.93 Glucose 212 H 153 H Calcium 8.3 L 8.2 L Cardiac Enzymes 07/20/21 Range/Units 21:47 Troponin I < 0.03 (0-0.04) ng/ml Liver Function 07/20/21 Range/Units 23:01 Total Bilirubin 0.9 (0.2-1.0) mg/dl Direct Bilirubin 0.1 (0-0.2) mg/dl AST 15 (13-39) U/L ALT 19 (7-52) U/L Alkaline Phosphatase 77 (34-104) U/L Albumin 3.4 (3.4-5.0) gm/dl Urine 07/21/21 Range/Units 07:32 Urine Color Yellow Urine Appearance Clear (Clear) Urine pH 5.0 (4.5-7.5) Ur Specific [place] 1.026 (1.000-1.030) Urine Protein Negative (Negative) Urine Glucose (UA) 2+ H (Negative) Diagnostic Findings Chest X-Ray 07/20/21 21:55 XR chest 1V portable CLINICAL HISTORY: Hypertension. Evaluate cardiopulmonary status.. COMPARISON STUDY: No previous studies for comparison. TECHNIQUE: 1 view of the chest FINDINGS: Single frontal view of the chest demonstrates the cardiomediastinal silhouette to be within normal limits. The lungs are clear of alveolar opacities. There is no evidence for pleural effusion. There is no evidence for vascular congestion. There is no acute osseous pathology. IMPRESSION: No acute cardiopulmonary disease. ACT 112: Negative or not required by law. Electronically signed by: Farhan Hooper M.D. 07/21/2021 8:02 AM Medications Administered Current Inpatient Medications Acetaminophen (Acetaminophen 325 Mg Tab) 650 mg PO Q4H PRN PRN Reason: Pain or Fever Stop: 08/19/21 22:59 Atorvastatin Calcium (Atorvastatin 10 Mg Tab) 10 mg PO QAM [facility] Stop: 08/20/21 08:59 Last Admin: 07/21/21 09:21 Dose: 10 mg Documented by: Bupropion HCl (Bupropion Xl 150 Mg Tabcr) 150 mg PO QAM [facility] Stop: 08/20/21 08:59 Last Admin: 07/21/21 09:21 Dose: 150 mg Documented by: Dextrose (Dextrose 50% 50 Ml Syringe) 25 - 50 ml IV UD PRN; Protocol PRN Reason: Hypoglycemia Protocol Stop: 08/19/21 22:59 Enalapril Maleate (Enalapril Maleate 10 Mg Tab) 20 mg PO QAM [facility] Stop: 08/20/21 08:59 Last Admin: 07/21/21 09:21 Dose: 20 mg Documented by: Escitalopram Oxalate (Escitalopram Oxalate 20 Mg Tab) 20 mg PO QAM [facility] Stop: 08/20/21 08:59 Last Admin: 07/21/21 09:21 Dose: 20 mg Documented by: Fluticasone Propionate (Fluticasone Propionate Na Spr 16 Gm Btl) 2 sprays NA DAILY [facility] Stop: 08/20/21 08:59 Last Admin: 07/21/21 09:21 Dose: Not Given Documented by: Glucagon (Glucagon For Inj 1 Mg Vial) 1 mg SQ UD PRN; Protocol PRN Reason: Hypoglycemia Protocol Stop: 08/19/21 22:59 Glucose (Glucose 10 Tabs/Tube) 4 - 8 tabs PO UD PRN; Protocol PRN Reason: Hypoglycemia Protocol Stop: 08/19/21 22:59 Glucose (Glucose 40% Gel 15 Gm Tube) 15 - 30 gm PO UD PRN; Protocol PRN Reason: Hypoglycemia Protocol Stop: 08/20/21 03:24 Hydromorphone HCl (Hydromorphone Inj 0.5 Mg/0.5 Ml Syr) 1 mg IV Q4H PRN PRN Reason: Pain Stop: 08/03/21 22:59 Last Admin: 07/21/21 07:55 Dose: 1 mg Documented by: Promethazine HCl 12.5 mg/ (Sodium Chloride) 50.5 mls @ 202 mls/hr IV Q6H PRN PRN Reason: Nausea And Vomiting Stop: 08/19/21 22:49 Sodium Chloride (Nss 1000ml) 1,000 mls @ 50 mls/hr IV .Q20H PASCUAL Stop: 08/20/21 00:47 Last Infusion: 07/21/21 09:45 Dose: 0 mls/hr Documented by: Cefazolin Sodium (Ancef 2000mg) 2,000 mg in 15 mls @ 3.75 mls/min IV PREOP [facility] Stop: 07/21/21 16:00 Lactated Ringer's (Lr) 1,000 mls @ 80 mls/hr IV .[id number] [facility] Stop: 08/20/21 08:14 Last Admin: 07/21/21 09:21 Dose: 80 mls/hr Documented by: Insulin Aspart (Insulin Aspart Per Unit) 0 units SC Q6 [facility] Stop: 08/20/21 05:59 Last Admin: 07/21/21 07:22 Dose: 1 units Documented by: Insulin Glargine (Insulin Glargine Solostar 100 Units/Ml 3 Ml Pen) 5 units SC HS [facility] Stop: 08/20/21 20:59 Levothyroxine Sodium (Levothyroxine Sodium 175 Mcg Tablet) 175 mcg PO DAILYBB [facility] Stop: 08/20/21 06:29 Last Admin: 07/21/21 06:29 Dose: 175 mcg Documented by: Miscellaneous (Carbohydrates For Hypoglycemia ) 15 - 30 gm PO UD PRN PRN Reason: Hypoglycemia Protocol Stop: 08/19/21 22:59 Multivitamins (Multivitamin Tab) 1 tab PO DAILY [facility] Stop: 08/20/21 08:59 Last Admin: 07/21/21 07:56 Dose: 1 tab Documented by: Oxycodone HCl (Oxycodone Hcl Ir 5 Mg Tab (Immediate Release)) 5 - 10 mg PO QID PRN PRN Reason: Pain Stop: 08/03/21 22:59 Last Admin: 07/21/21 04:15 Dose: 5 mg Documented by: Pantoprazole Sodium (Pantoprazole 40 Mg Tab) 40 mg PO QAM [facility] Stop: 08/20/21 08:59 Last Admin: 07/21/21 07:56 Dose: 40 mg Documented by: (1) Fracture of right patella Encounter type: initial encounter Fracture alignment: displaced Fracture morphology: transverse Fracture type: closed Qualified Code(s): S82.031A - Displaced transverse fracture of right patella, initial encounter for closed fracture (2) Laceration of left eyebrow Encounter type: initial encounter Qualified Code(s): S01.112A - Laceration w ithout foreign body of left eyelid and periocular area, initial encounter
[2021-07-21] MEDS ORDERED: ceFAZolin 2000MG 2,000 MG/15 ML SYR IV SCH (11:00)
[2021-07-21] MEDS ORDERED: ONDANSETRON INJ 2 MG/ML 2 ML VIAL ONE ×2 (13:19→15:42)
[2021-07-21] MEDS ORDERED: ALBUTEROL HFA INHALER 8.5 GM ONE (15:42)
--- NOTE | 2021-07-21 17:17 | Post Operative Brief Note ---
Immediate Post Op Note v1 Date of Surgery July 21, 2021 Pre & Post Diagnosis Operation Date: 07/21/21 11:00 Pre-Op Diagnosis: Fracture of right patella Post-Op Diagnosis: Fracture of right patella I identified the patient and participated in the time-out.: Yes Procedure Operation Date: 07/21/21 11:00 Actual Procedures p Open Reduction Internal Fixation Right Patella(Right) - Alvarez Vera MD Surgeon Alvarez Vera MD Financial Professional Guerrero Hoang MD & M JANIYA Wells Estimated Blood Loss 50 Findings Consistent with Post-Op Diagnosis Fluids 1000 cc Anesthesia Type General Complications none
--- NOTE | 2021-07-21 17:19 | Operative Report ---
Post Operative Report Pre & Post Diagnosis Operation Date: 07/21/21 11:00 Pre-Op Diagnosis: Fracture of right patella Post-Op Diagnosis: Fracture of right patella I identified the patient and participated in the time-out.: Yes Procedure Operation Date: 07/21/21 11:00 Actual Procedures p Open Reduction Internal Fixation Right Patella(Right) - Alvarez Vera MD Surgeon Alvarez Vera MD Casing Crew Pusher Guerrero Hoang MD & M JANIYA Wells Estimated Blood Loss 50 Findings See Below Displaced and comminuted right patella fracture. Oblique transverse fracture. Fluids 1000 cc Specimens n/a Anesthesia Type General Complications none Indications The patient is a 65 year old female who sustained a right patella fracture from a ground level fall. The patients treatment options of conservative versus surgical intervention were discussed. I recommended surgery. The patient understands the risks of surgery, which include but are not limited to: bleeding, infection, re-operation, damage to nerves and arteries, continued pain, failure of the hardware, mal-union, non-union, DVT, and . The patient understands all of these instructions and explanations, all of their questions have been satisfactorily addressed. The patient has elected to proceed with surgery and the informed consent was signed. Description of Procedure IMPLANTS: 1. 1.6 K-wire x 2. 2. 18 Gauge Surgical steel wire. PROCEDURE: The patient was taken to the Operating Room and placed in the supine position on the radiolucent table after general anesthesia was administered. A multidisciplinary time-out was performed identifying my initials on the right lower limb as the correct and operative limb. Prior to the incision being made, 2 grams of intravenous Ancef were given.The right lower extremity was prepped in the standard fashion. The planned anterior knee incision was marked and injected with a 50:50 mixture of 1% Lidocaine with epi and 0.5% Bupivacaine plain for a total of 10 cc. The planned anterior incision was made and carried down exposing the patella and the fracture. The effusion was evacuated with suction. The hematoma and any small bone fragments were removed with a combination of rongeur, pituitary, irrigation and suction. There were 2 main fragments. Using inside-out technique, 2 parallel K-wires were placed through the proximal fragment first with the sharp end left at the level of the cancellous bone. Then with the knee in extension and using a pointed reduction clamp, the fragments were held reduced, and the K-wires were passed through the distal fragment. Fluoroscopy was used to confirm that the fracture was well reduced. The ends of the K wires were exposed with cautery. 18-gauge stainless steel wire was passed in a [id number] fashion beneath the K wires and the patellar tendon and quad tendon. The proximal ends of the K wires were bent and using a bone tamp to capture the stainless steel wire, the K wires were further displaced distally. The 18-gauge wire was tightened both medially and laterally. The distal end of the K wires and the excess steel wire from the tightening were shortened. The tightening surgical wire was bent over the patella. Final x-rays were obtained showing near anatomic alignment of the patella. The wounds were copiously irrigated. The quad tendon, patellar tendon, and the overlying patellar fascia were closed with 0 Vicryl. The peritenon was closed with 2-0 Vicryl. The subcutaneous tissue was closed with 3-0 Vicryl. The skin was closed with ZipLine and shield. The incisions were covered with 4x4s, ABD, sterile cast padding, and a range of motion brace locked in extension was placed. The patient was transfer to the hospital bed and taken to the PACU in stable condition. The sponge and needle counts were correct. Post-op Instructions: The patient will be re-admitted to Telemetry on the Hospitalist service. Patient will be WBAT with the brace locked in extension. PT/OT. The patient will follow up with Dr. Vera in 10-15 days. She was given pain medicine which she will take as needed. She will use aspirin or other anti-inflammatories as well for pain control and DVT prophylaxis.. I attest to the content of the Intraoperative Record and any orders documented therein. Any exceptions are noted below.
--- NOTE | 2021-07-21 17:34 | Fluoroscopy Report ---
INTRAOPERATIVE RADIOGRAPHS CLINICAL HISTORY: Open reduction and internal fixation of the patella. Fluoroscopy time: 8 seconds. FINDINGS: 2 spot fluoroscopic views of the right knee are correlated with radiographs dated 07/20/2021 . There are pins and cerclage wires transfixing a horizontal fracture through the patella with restor ation of near-anatomic alignment. The orthopedic hardware appears intact. IMPRESSION: Intraoperative images from open reduction and internal fixation of a right patellar fract ure as above. Electronically signed by: Domingo Elder M.D. 07/21/2021 5:32 PM
--- NOTE | 2021-07-21 17:37 | Operative Report ---
Post Operative Report Pre & Post Diagnosis Operation Date: 07/21/21 11:00 Pre-Op Diagnosis: Fracture of right patella Post-Op Diagnosis: Fracture of right patella I identified the patient and participated in the time-out.: Yes Procedure Operation Date: 07/21/21 11:00 Actual Procedures p Open Reduction Internal Fixation Right Patella(Right) - Alvarez Vera MD Surgeon Vidal Hoang MD Reduction Furnace Operator Guerrero Hoang MD & M Priscilla PA-C Estimated Blood Loss 50 I attest to the content of the Intraoperative Record and any orders documented therein. Any exceptions are noted below. Supervising Physician Co-Signing Physician Notes I Dr. Vera, saw and examined the patient and agree with the above findings and plan of care which I formulated and discussed with my PA. Patient understands the risks, is asymptomatic, and tested negative for COVID- 19. My PA spent 20 minutes with the patient. Apparently the patient ate solid food at 7 am; will plan OR later today at 3 pm. I spent 40 minutes, with the patient, reviewing the chart, and x-rays, talking with the family via telephone, communicating with the primary team/anesthesia/OR, and obtaining consent.
--- NOTE | 2021-07-21 17:39 | Operative Report ---
Post Operative Report Pre & Post Diagnosis Operation Date: 07/21/21 11:00 Pre-Op Diagnosis: Fracture of right patella Post-Op Diagnosis: Fracture of right patella I identified the patient and participated in the time-out.: Yes Procedure Operation Date: 07/21/21 11:00 Actual Procedures p Open Reduction Internal Fixation Right Patella(Right) - Alvarez Vera MD Surgeon Dr. Alvarez [facility] Director Guerrero Hoang MD & M JANIYA Wells Estimated Blood Loss 50 Findings Consistent with Post-Op Diagnosis Specimens none Description of Procedure Pt was taken to operating room, placed under general anesthesia. Pt was given 2mg Ancef IV. Prepped and draped in sterile fashion. I was present during the entire case and assisted with positioning, instrumentation, closure and dressings. Fellow was also present during entire case. Please see Dr. Vera's op report for further detail. Pt was awake and transferred to PACU in stable condition I attest to the content of the Intraoperative Record and any orders documented therein. Any exceptions are noted below.
--- NOTE | 2021-07-21 17:40 | Operative Report ---
Post Operative Report Pre & Post Diagnosis Operation Date: 07/21/21 11:00 Pre-Op Diagnosis: Fracture of right patella Post-Op Diagnosis: Fracture of right patella I identified the patient and participated in the time-out.: Yes Procedure Operation Date: 07/21/21 11:00 Actual Procedures p Open Reduction Internal Fixation Right Patella(Right) - Alvarez Vera MD Surgeon Alvarez Vera Contact Lens Inspector Guerrero Hoang MD & M JANIYA Wells Estimated Blood Loss 50 Findings Consistent with Post-Op Diagnosis Consistent with post op diagnosis. Specimens No specimens Description of Procedure I participated in prepping dressing and assisted Dr. Vera during the procedure. Please see Dr. Vera note. I attest to the content of the Intraoperative Record and any orders documented therein. Any exceptions are noted below.
[2021-07-21] MEDS ORDERED: MAGNESIUM HYDROXIDE SUSP 30 ML UDC PO PRN (17:45)
[2021-07-21] MEDS ORDERED: NALOXONE HCL 0.4 MG/1 ML VIAL/CARP IV PRN (17:45)
[2021-07-21] MEDS ORDERED: bisacodyL 10 MG SUPP PR PRN (17:45)
[2021-07-21] MEDS ORDERED: oxyCODONE HCL IR 5 MG TAB (IMMEDIATE RELEASE) PO PRN (17:45)
[2021-07-21] MEDS ORDERED: Nursing to Pharmacy Communication SCH (18:30)
[2021-07-21] MEDS: SODIUM CHLORIDE 0.9% 1000ML 1,000 ML IV SCH (18:40)
--- NOTE | 2021-07-21 18:46 | Anesthesiology Progress Note ---
Date of Service July 21, 2021 Anesthesia Post Procedure Vital Signs Vital Signs: Temp Pulse Pulse Pulse Pulse Resp BP 07/21/21 18:35 37.5 C 84 16 07/21/21 18:15 68 12 07/21/21 18:05 37.2 C 73 20 07/21/21 17:55 72 12 07/21/21 17:45 76 14 07/21/21 17:39 36.9 C 76 18 07/21/21 14:19 37.4 C 73 20 07/21/21 12:29 37.4 C 72 20 07/21/21 10:50 36.8 C 77 18 07/21/21 07:55 36.8 C 71 18 07/21/21 07:17 69 07/21/21 03:30 66 07/21/21 03:05 36.8 C 75 16 07/21/21 02:36 66 H 120/56 L 07/21/21 01:05 74 12 07/20/21 22:55 75 15 07/20/21 20:53 79 18 07/20/21 19:27 83 15 BP BP Pulse Ox 07/21/21 18:35 144/86 H 94 07/21/21 18:15 148/70 H 97 07/21/21 18:05 147/86 H 95 07/21/21 17:55 156/74 H 99 07/21/21 17:45 156/69 H 96 07/21/21 17:39 175/91 H 98 07/21/21 14:19 122/72 91 07/21/21 12:29 128/75 92 07/21/21 10:50 131/69 94 07/21/21 07:55 134/74 94 07/21/21 07:17 07/21/21 03:30 07/21/21 03:05 138/78 97 07/21/21 02:36 98 07/21/21 01:05 111/59 L 97 07/20/21 22:55 124/63 97 07/20/21 20:53 175/80 H 95 07/20/21 19:27 246/103 H 97 Pain Intensity Right Knee: Pain Intensity: 4 Transfer of Care Handoff Completed per policy Notes Mental Status: alert / awake / arousable Patient Amnestic to Procedure: Yes Nausea / Vomiting: adequately controlled Pain: adequately controlled Airway Patency, RR, SpO2: stable & adequate BP & HR: stable & adequate Hydration State: stable & adequate Anesthetic Complications: no major complications apparent
[2021-07-21] MEDS ORDERED: NON-FORMULARY MEDICATION (Flurbiprofen 100 mg tablet) PO SCH (21:00)
[2021-07-21] MEDS: INSULIN GLARGINE SOLOSTAR 100 UNITS/ML 3 ML PEN SC SCH (21:11)
[2021-07-21] MEDS: DOCUSATE SODIUM 100 MG CAP PO SCH (21:16)
[2021-07-22] MEDS: HYDROmorphone INJ 0.5 MG/0.5 ML SYR IV PRN ×3 (01:02→10:12)
[2021-07-22] MEDS: SODIUM CHLORIDE 0.9% 1000ML 1,000 ML IV SCH (05:32)
[2021-07-22] MEDS: LEVOTHYROXINE SODIUM 175 MCG TABLET PO SCH (05:38)
[2021-07-22] MEDS: INSULIN ASPART PER UNIT SC SCH ×4 (08:32→21:20)
[2021-07-22] MEDS: FLUTICASONE PROPIONATE NA SPR 16 GM BTL SCH (08:33)
[2021-07-22] MEDS: DOCUSATE SODIUM 100 MG CAP PO SCH ×2 (08:34→21:19)
[2021-07-22] MEDS: ATORVASTATIN 10 MG TAB PO SCH (08:34)
[2021-07-22] MEDS: MULTIVITAMIN TAB PO SCH (08:34)
[2021-07-22] MEDS: PANTOprazole 40 MG TAB PO SCH (08:34)
[2021-07-22] MEDS: buPROPion XL 150 MG TABCR PO SCH (08:34)
[2021-07-22] MEDS: OMEGA-3 (PURIFIED FISH OIL) 1 GM CAP PO SCH (08:35)
[2021-07-22] MEDS: ENALAPRIL MALEATE 10 MG TAB PO SCH (08:35)
[2021-07-22] MEDS: ESCITALOPRAM OXALATE 20 MG TAB PO SCH (08:35)
--- NOTE | 2021-07-22 09:10 | Orthopedic Progress Note ---
Date of Service July 22, 2021 Assessment & Plan (1) Fracture of right patella: Plan: POD # 1 s/p ORIF Right Patella fracture,doing as well as expected. Diabetic diet. WBAT as tolerated with the brace locked in extension. OOB to chair. Continue pain control. DVT prophylaxis: TEDs 3 weeks, foot pumps while in hospital, ASA 81 mg BID for 6 weeks. PT/OT. D/C planning. Continue care per primary service. Present on Admission?: Yes Admission and Anticipated Discharge Date Admission Date: July 22, 2021 Subjective Doing alright. Pain right knee if she attempts to move. Review of Systems Review of Systems: All systems reviewed & are unremarkable except as noted in HPI & below Physical Exam Musculoskeletal: RLE: Dressing Clean, dry, intact. Neurovascularly intact. Brace in place. Results & Data ([facility]) Vital Signs (Past 12 Hours) Vital Signs Temp Pulse Pulse Pulse Resp BP Pulse Ox 07/22/21 07:58 158/78 H 07/22/21 07:55 37.4 C 83 20 201/84 H 98 07/22/21 07:20 75 07/22/21 03:15 37.2 C 85 18 179/71 H 98 07/22/21 01:14 71 07/21/21 22:11 37.2 C 75 18 150/73 H 97 07/21/21 21:10 37.5 C 83 18 157/85 H 98 Laboratory Results 07/22/21 07/21/21 07/21/21 Range/Units 07:38 20:05 18:35 POC Glucose 129 H 170 H 175 H (70-99) mg/dl 07/21/21 07/21/21 07/21/21 Range/Units 17:40 14:23 11:46 POC Glucose 171 H 140 H 124 H (70-99) mg/dl 07/21/21 Range/Units 11:34 POC Glucose 127 H (70-99) mg/dl (1) Fracture of right patella Encounter type: initial encounter Fracture alignment: displaced Fracture morphology: transverse Fracture type: closed Qualified Code(s): S82.031A - Displaced transverse fracture of right patella, initial encounter for closed fracture
--- NOTE | 2021-07-22 10:09 | Neurology Consultation ---
Date of Consultation July 22, 2021 Assessment & Plan (1) Dysequilibrium: 1. MRI IAC done 2018 would repeat MRI brain with IAC- this may need to be done outpatient if unable to tolerate IP 2. orthostatic blood pressure when able 3. refer to [facility] for further testing once discharged if further evaluation needed 4. PT/OT for discharge needs 5. fall precautions 6. ENT for further evaluation of left ear effusion follow up with neurology 4-6 weeks or after PT (2) Vertigo: as above Supervising Physician Co-Signing Physician Notes Patient was seen and examined. Admitted with mechanical fall and trauma to right knee s/p surgery. Chronic balance problems with loss of hearing. Has hearing aides. ? menierre's has been evaluated in the balance center. No nystagmus on examine. Unable to evaluate gait due to recent surgery. Suggestive chronic vestibulocochlear dysfunction leading to balance problems and falls. Recommend use of ataptive equipment and PT. If patient wishes happy to evalaute in the office once she has recovery from injury. History of Present Illness Reason for Consultation: dysquilibrium, diminished hearing in left ear, Requesting Physician: Patt Kumar DO Attending Physician: Cortney Hunter MD History of Present Illness Vika is a 65 year old female with a PMH-HTN, hypothyroidism, DM who was taking out garbage and fell to the ground.She slipped and fell though does admit almost vertiginous symptoms and has a left ear effusion. There was no neurologic deficits or other concerning findings by exam. X-rays with a right patellar fracture and CT of the head is negative. Laceration to the left eyebrow was repaired with Dermabond. She was feeling better with IV narcotics and wanted to go home with out patient follow up. Attempted to ambulate patient with knee immobilizer and walker and she is too vertiginous in too much discomfort.She had mildly elevated WBC consistent with stress response.She was last seen in our office in 2019 and at that time she was diagnosed with vertigo and vestibular migraines. She has been evaluated at [facility] 2018 and was diagnosed with positional nystagmus which was considered +cerebellar origin. MRI with IAC was negative for lesions. She was also referred to ENT for the hearing loss in her left ear. She was not seen yesterday due to being in the OR for the patellar surgery. She was walking on a level sidewalk when she fell. Prior to that event she was walking her dog and had no issues with dizziness or vertigo symptoms. denies CP, SOB, abdominal pain, one sided weakness, numbness tingling, N, V. Allergies Allergy/AdvReac Type Severity Reaction Status Date / Time naproxen Allergy Unknown JOINT Verified 07/20/21 19:57 INFLAMMATION Home Medications Medication Instructions Recorded Confirmed Type fluticasone propionate 50 2 spray INTNAS DAILY 01/18/20 07/20/21 History mcg/actuation nasal spray,suspension levothyroxine 175 mcg tablet 175 mcg PO QAM 01/18/20 07/20/21 History metformin 850 mg tablet 850 mg PO TID 01/18/20 07/20/21 History omeprazole 20 mg capsule,delayed 20 mg PO QAM 01/18/20 07/20/21 History release multivitamin (Daily Multi-Vitamin) 1 tab PO DAILY 09/10/20 07/20/21 History atorvastatin 10 mg tablet 10 mg PO QAM 07/20/21 07/20/21 History benazepril 10 mg tablet 10 mg PO QAM 07/20/21 07/20/21 History bupropion HCl 150 mg 24 hr tablet, 150 mg PO QAM 07/20/21 07/20/21 History extended release escitalopram oxalate 20 mg tablet 20 mg PO QAM 07/20/21 07/20/21 History flurbiprofen 100 mg tablet 100 mg PO BID 07/20/21 07/20/21 History omega 2-pyq-lbu-fish oil 900 1 cap PO QAM 07/20/21 07/20/21 History mg-1,400 mg capsule,delayed release Patient History Medical History (Updated 07/21/21 @ 11:30 by Javon Bowie MD) Anemia Chronic sinusitis Diabetes mellitus Hypertension Hypothyroidism Laryngopharyngeal reflux Obesity Postmenopausal atrophic vaginitis Surgical History History of bronchoscopy Hx of colonoscopy Hx of hysterectomy Hx of knee surgery Hx of lumpectomy Hx of rotator cuff surgery both shoulders Family History Mother Bipolar disorder Diabetes Carotid artery disease Grandmother (Maternal) Cancer Father Hypertension Prostate cancer Denies family history of Breast cancer Colorectal cancer Social History Smoking Status: Former smoker Tobacco Type: Cigarettes Do You Dip or Chew Tobacco: No; Hx Alcohol Use: Yes Hx Substance Use: No Preferred Language: Mozambican Communication Ability: Effective Cut Pressman Required: No Beliefs That Will Affect Care: None Current Living Situation: Spouse Other Information That Helps Us Care for You: No Feels Safe at Home: Yes Safety Concerns: Feels Safe At This Time Assistive Devices: Walker Review of Systems Review of Systems: All systems reviewed & are unremarkable except as noted in HPI & below Physical Exam Physical Exam: Physical Exam: Constitutional: appearance over nourished, healthy Ears, Nose, Mouth and Throat: mucous membranes moist, no injection and skin normal, eyes normal Cardiovascular: systolic ejection murmer Respiratory: clear to auscultation (CTA) and no rales, ronchi or wheeze Musculoskeletal: right leg immobilized from surgery Skin: left eye ecchomyosis Eyes: extraocular muscles intact (EOMI) and pupils equal, round and reactive to light (PERRL) NEUROLOGIC EXAMINATION: Mental status: Alert and interactive Oriented to person Speech fluent with no evidence of aphasia Cranial Nerves smile eye brow raise symmetric Sensory: intact to light and cool touch Coordination: finger to nose no bipass Gait/Stance: Posture lying in bed. Gait unable to evaluation due to surgery on right patellar Motor: Negative for pronator drift of out stretched arms with eyes closed. Strength: hand systems planner biceps triceps 5/5 bilaterally, hip flex left 5/5 plantar flex ext 5/5 bilaterally Results & Data ([facility]) Vital Signs (Past 12 Hours) Vital Signs Temp Pulse Pulse Pulse Resp BP Pulse Ox 07/22/21 07:58 158/78 H 07/22/21 07:55 37.4 C 83 20 201/84 H 98 07/22/21 07:20 75 07/22/21 03:15 37.2 C 85 18 179/71 H 98 07/22/21 01:14 71 07/21/21 22:11 37.2 C 75 18 150/73 H 97 Laboratory Results Abnormal lab results 07/21/21 07/21/21 07/21/21 Range/Units 11:34 11:46 14:23 POC Glucose 127 H 124 H 140 H (70-99) mg/dl 07/21/21 07/21/21 07/21/21 Range/Units 17:40 18:35 20:05 POC Glucose 171 H 175 H 170 H (70-99) mg/dl 07/22/21 Range/Units 07:38 POC Glucose 129 H (70-99) mg/dl Diagnostic Findings CT head-No acute intracranial abnormality. Left periorbital soft tissue swelling
--- NOTE | 2021-07-22 10:24 | Hospitalist Progress Note ---
Date of Service July 22, 2021 Assessment & Plan (1) Dysequilibrium: Plan: Reportedly had positive orthostatic hypotension in ER but no documentation found Currently BP remains stable Symptoms have been chronic TTE unremarkable PT evaluation pending Appreciate Neurology input (2) Fracture of right patella: Plan: Surgical management per ortho. s/p ORIF 07/21 WBAT with knee in immobilizer PT evaluation pending (3) Laceration of left eyebrow: Plan: supportive measures. (4) Anemia: Plan: Hb 12 at baseline. no active bleeding noted Will continue to monitor (5) DMII (diabetes mellitus, type 2): Plan: A1C uncontrolled at 7.5 with goal <6.5. For now, hold metformin and continue with basal bolus insulin while hospitalized. Goal is euglycemia for optimal post operative wound healing. (6) Hypertensive urgency: Plan: Continue Benazepril with hold parameters Avoid hypotension with her history of falls BP acceptable currently (7) DVT prophylaxis: Plan: SCDs while in the hospital Full Code Aspirin 81mg BID x 6 weeks Admission and Anticipated Discharge Date Admission Date: July 22, 2021 Subjective went to OR yesterday. Overall feels well. Just received pain medications and currently feels drowsy Review of Systems Review of Systems: right leg pain. drowsy from pain medications. no chest pain, shortness of breath, abdominal pain. right foot--denies numbness or tingling Physical Exam Constitutional: sitting in chair, pleasant and comfortable ENMT: normocephalic, bruising around left eye Neck: supple Respiratory: breathing comfortably on room air, no accessory muscle use, no wheezing/rhonchi/rales Cardiovascular: regular rate and rhythm, no murmurs/rubs/gallops Gastrointestinal (Abdomen): soft, non tender, non distended Skin: right toes are warm and perfused, right leg in immobilizer Neurologic: awake but drowsy due to pain medication, attempts to answer a question then forgets mid sentence, spontaneously moving extremities Psychiatric: affect normal, speech linear, non pressured Results & Data Results & Data ([facility]) Vital Signs (Past 12 Hours) Vital Signs Temp Pulse Pulse Pulse Resp BP Pulse Ox 07/22/21 07:58 158/78 H 07/22/21 07:55 37.4 C 83 20 201/84 H 98 07/22/21 07:20 75 07/22/21 03:15 37.2 C 85 18 179/71 H 98 07/22/21 01:14 71 (1) Fracture of right patella Encounter type: initial encounter Fracture alignment: displaced Fracture morphology: transverse Fracture type: closed Qualified Code(s): S82.031A - Displaced transverse fracture of right patella, initial encounter for closed fracture (2) Laceration of left eyebrow Encounter type: initial encounter Qualified Code(s): S01.112A - Laceration without foreign body of left eyelid and periocular area, initial encounter
[2021-07-22] MEDS ORDERED: oxyCODONE HCL IR 5 MG TAB (IMMEDIATE RELEASE) PO PRN ×2 (16:51)
[2021-07-22] MEDS ORDERED: HYDROmorphone INJ 0.5 MG/0.5 ML SYR IV PRN (16:53)
[2021-07-22] MEDS: ACETAMINOPHEN 325 MG TAB PO SCH (21:20)
[2021-07-22] MEDS: INSULIN GLARGINE SOLOSTAR 100 UNITS/ML 3 ML PEN SC SCH (21:20)
[2021-07-23] MEDS: LEVOTHYROXINE SODIUM 175 MCG TABLET PO SCH (05:32)
[2021-07-23] MEDS: ENALAPRIL MALEATE 10 MG TAB PO SCH (07:45)
[2021-07-23] MEDS: DOCUSATE SODIUM 100 MG CAP PO SCH (07:45)
[2021-07-23] MEDS: buPROPion XL 150 MG TABCR PO SCH (07:46)
[2021-07-23] MEDS: PANTOprazole 40 MG TAB PO SCH (07:46)
[2021-07-23] MEDS: MULTIVITAMIN TAB PO SCH (07:46)
[2021-07-23] MEDS: ACETAMINOPHEN 325 MG TAB PO SCH ×2 (07:46→14:09)
[2021-07-23] MEDS: OMEGA-3 (PURIFIED FISH OIL) 1 GM CAP PO SCH (07:46)
[2021-07-23] MEDS: ESCITALOPRAM OXALATE 20 MG TAB PO SCH (07:46)
[2021-07-23] MEDS: ATORVASTATIN 10 MG TAB PO SCH (07:46)
[2021-07-23] MEDS: FLUTICASONE PROPIONATE NA SPR 16 GM BTL SCH (07:47)
[2021-07-23] MEDS: INSULIN ASPART PER UNIT SC SCH ×2 (08:38→12:06)
--- NOTE | 2021-07-23 08:54 | History & Physical Report ---
Date of Service July 23, 2021 Assessment & Plan (1) Fracture of right patella: Plan: POD # 2 s/p ORIF Right Patella fracture,doing as well as expected. Diabetic diet. WBAT as tolerated with the brace locked in extension. OOB to chair. Continue pain control. DVT prophylaxis: TEDs 3 weeks, foot pumps while in hospital, ASA 81 mg BID for 6 weeks. PT/OT. D/C planning. Continue care per primary service. Dressing changed to Silverlon today. Pt can keep that on until follow up in the office Will scheduled PT appointment for pt 2 days upon discharge and 2 week post op follow up with myself Admission and Anticipated Discharge Date Admission Date: July 22, 2021 History of Present Illness Primary Care Provider: Lenard Cobos MD PT 2 days s/p ORIF R patella. Seen and examined bedside. She says she is doing well and her pain is well controlled. She is working well with PT. She is able to stand. She says that her daughter may be able to stay with her for a couple days to avoid her having to go to rehab. We discussed that she is WBAT in immobolizer locked in extension using walker to assist her. We discussed her follow ups. She has no other questions or concerns today. Allergies Allergy/AdvReac Type Severity Reaction Status Date / Time naproxen Allergy Unknown JOINT Verified 07/20/21 19:57 INFLAMMATION Home Medications Medication Instructions Recorded Confirmed Type fluticasone propionate 50 2 spray INTNAS DAILY 01/18/20 07/20/21 History mcg/actuation nasal spray,suspension levothyroxine 175 mcg tablet 175 mcg PO QAM 01/18/20 07/20/21 History metformin 850 mg tablet 850 mg PO TID 01/18/20 07/20/21 History omeprazole 20 mg capsule,delayed 20 mg PO QAM 01/18/20 07/20/21 History release multivitamin (Daily Multi-Vitamin) 1 tab PO DAILY 09/10/20 07/20/21 History atorvastatin 10 mg tablet 10 mg PO QAM 07/20/21 07/20/21 History benazepril 10 mg tablet 10 mg PO QAM 07/20/21 07/20/21 History bupropion HCl 150 mg 24 hr tablet, 150 mg PO QAM 07/20/21 07/20/21 History extended release escitalopram oxalate 20 mg tablet 20 mg PO QAM 07/20/21 07/20/21 History flurbiprofen 100 mg tablet 100 mg PO BID 07/20/21 07/20/21 History omega 5-oee-irq-fish oil 900 1 cap PO QAM 07/20/21 07/20/21 History mg-1,400 mg capsule,delayed release acetaminophen 325 mg tablet 650 mg PO TID 7 Days #42 tab 07/23/21 Rx aspirin 81 mg tablet,delayed 81 mg PO BID 42 Days #84 tab 07/23/21 Rx release oxycodone 5 mg capsule 5 mg PO Q6 PRN #10 cap NS 07/23/21 Rx Past Med/Surg History Medical History (Updated 07/21/21 @ 11:30 by Javon Bowie MD) Anemia Chronic sinusitis Diabetes mellitus Hypertension Hypothyroidism Laryngopharyngeal reflux Obesity Postmenopausal atrophic vaginitis Surgical History History of bronchoscopy Hx of colonoscopy Hx of hysterectomy Hx of knee surgery Hx of lumpectomy Hx of rotator cuff surgery both shoulders Family History Mother Bipolar disorder Diabetes Carotid artery disease Grandmother (Maternal) Cancer Father Hypertension Prostate cancer Denies family history of Breast cancer Colorectal cancer Social History Smoking Status: Former smoker Tobacco Type: Cigarettes Do You Dip or Chew Tobacco: No; Hx Alcohol Use: Yes Hx Substance Use: No Preferred Language: Greenlandic Communication Ability: Effective Waistline Joiner Lockstitch Required: No Beliefs That Will Affect Care: None Current Living Situation: Spouse Other Information That Helps Us Care for You: No Feels Safe at Home: Yes Safety Concerns: Feels Safe At This Time Assistive Devices: Walker Review of Systems Review of Systems: Denies fevers, chills, numbness or tingling in RLE. Denies calf pain Physical Exam Physical Exam: General: Patient is laying in bed AA&O x3, NAD, Calm and cooperative during exam Right LE: Knee immobolizer in place fitting appropriately. Removed briefly for exam and dressing taken down to reveal incision. Incision clean and dry, well approximated with minimal bloody drainage. Mild swelling noted and some ecchymosis on the medial aspect of the knee. Patient has full ROM of ankle and all 5 toes. Knee ROM and strength deferred due to injury. 5/5 strength with DF/PF. NVI with sensation to light touch and 2+ DP pulse. Pt able to do quad set. Dressing changed to silverlon and bernardino wrap and brace re-applied Results & Data Results & Data ([facility]) Vital Signs (Past 12 Hours) Vital Signs Temp Pulse Resp BP Pulse Ox 07/23/21 08:06 37.7 C H 71 20 177/81 H 95 07/23/21 03:48 154/84 H 07/23/21 03:29 37.1 C 77 18 175/83 H 91 07/22/21 23:22 37.4 C 76 18 160/83 H 96 Laboratory Results 07/23/21 07/22/21 07/22/21 Range/Units 07:32 20:10 16:52 POC Glucose 159 H 273 H 211 H (70-99) mg/dl 07/22/21 Range/Units 11:33 POC Glucose 222 H (70-99) mg/dl Code Status & VTE Plan VTE Prophylaxis Plan VTE Prophylaxis will be ordered: Yes (1) Fracture of right patella Encounter type: initial encounter Fracture alignment: displaced Fracture morphology: transverse Fracture type: closed Qualified Code(s): S82.031A - Displaced transverse fracture of right patella, initial encounter for closed fracture
[2021-07-23] MEDS ORDERED: POLYETHYLENE (MIRALAX) 17 GM PACK PO SCH (09:00)
--- NOTE | 2021-07-23 12:06 | Hospitalist Progress Note ---
Date of Service July 23, 2021 Assessment & Plan (1) Dysequilibrium: Plan: Reportedly had positive orthostatic hypotension in ER but no documentation found Currently BP remains stable Symptoms have been chronic TTE unremarkable PT recommends acute rehab which patient is considering Appreciate Neurology input (2) Fracture of right patella: Plan: Surgical management per ortho. s/p ORIF 07/21 WBAT with knee in immobilizer PT recommends acute rehab (3) Laceration of left eyebrow: Plan: supportive measures. (4) Anemia: Plan: Hb 12 at baseline. no active bleeding noted Will continue to monitor (5) DMII (diabetes mellitus, type 2): Plan: A1C uncontrolled at 7.5 with goal <6.5. For now, hold metformin and continue with basal bolus insulin while hospitalized. Goal is euglycemia for optimal post operative wound healing. (6) Hypertensive urgency: Plan: Continue Benazepril with hold parameters Avoid hypotension with her history of falls BP acceptable currently (7) DVT prophylaxis: Plan: SCDs while in the hospital Full Code Aspirin 81mg BID x 6 weeks Plan: patient is medically stable for discharge pending safe dispo plan Admission and Anticipated Discharge Date Admission Date: July 22, 2021 Anticipated date of discharge: 07/24/21 Subjective Patient feels much better today. Less "woozy". Pain is well controlled at rest and only worsens when she tries to move Physical Exam Physical Exam: sitting in bed, pleasant and comfortable Constitutional: appears stated age, well nourished Neck: soft and supple Respiratory: breathing comfortably on room air, no wheezing/rhonchi/rales Cardiovascular: regular rate and rhythm, no murmurs/rubs/gallops Gastrointestinal (Abdomen): soft, non tender, non distended Musculoskeletal: right leg in immobilizer Neurologic: awake, alert, spontaneously moving extremities Psychiatric: affect normal, reliable historian, maintains eye contact Results & Data Results & Data ([facility]) Vital Signs (Past 12 Hours) Vital Signs Temp Pulse Resp BP Pulse Ox 07/23/21 11:43 37.0 C 77 20 138/68 95 07/23/21 08:06 37.7 C H 71 20 177/81 H 95 07/23/21 03:48 154/84 H 07/23/21 03:29 37.1 C 77 18 175/83 H 91 (1) Fracture of right patella Encounter type: initial encounter Fracture alignment: displaced Fracture morphology: transverse Fracture type: closed Qualified Code(s): S82.031A - Displaced transverse fracture of right patella, initial encounter for closed fracture (2) Laceration of left eyebrow Encounter type: initial encounter Qualified Code(s): S01.112A - Laceration without foreign body of left eyelid and periocular area, initial encounter
--- NOTE | 2021-07-23 14:16 | Discharge Summary ---
Date of Service July 23, 2021 Admission HPI Per Admitting Provider History obtained from patient, family, and records. Medical history significant for hypertension, hyperlipidemia, hypothyroidism, DM2 on oral medications, osteoarthritis, Mnire disease as per records, chronic anemia (baseline hemoglobin of 10 ), past tobacco abuse. Patient had a fall outside her home today as she was taking out her compost. She fell forward without antecedent dizziness, sensation of imbalance, chest pain, S OB. Some head trauma without LOC. Patient noted achy right knee pain and swelling after the fall. Patient could not stand up. 911 called by neighbors. Patient brought to the emergency room. Right knee x-ray showed patellar fracture. Right lower extremity splint applied and outpatient follow-up recommended with patient's orthopedic surgeon. Patient noted dizziness described as lightheadedness upon getting up from the ER bed. No spinning sensation as per patient. Patient felt diaphoretic. No chest pain, no S OB. Precipitous S BP drop from 240s to 170s noted at time of event. Principal Diagnosis Fall at home Right patella fracture s/p ORIF Discharge Exam Patient is pleasant, comfortable. Pain is well controlled. Her daughter will stay with her for next 2 weeks. Patient declines inpatient rehab. Discharge Data Allergies Allergy/AdvReac Type Severity Reaction Status Date / Time naproxen Allergy Unknown JOINT Verified 07/20/21 19:57 INFLAMMATION Consultations 07/20/21 21:49 ED Decision to Admit Stat 07/20/21 23:00 Consult Orthopedic Surgery Routine 07/21/21 11:01 Consult Neurology Routine Procedures Performed Operation Date: 07/21/21 11:00 Actual Procedures p Open Reduction Internal Fixation Right Patella(Right) - Alvarez Angi Vera MD Ordered Studies 07/20/21 18:51 CT head/brain wo con Stat 07/21/21 FL knee RT 1 or 2V Routine Hospital Course (1) Dysequilibrium: Reportedly had positive orthostatic hypotension in ER but no documentation found Currently BP remains stable Symptoms have been chronic TTE unremarkable PT recommends acute rehab versus home with 10/01 supervision. Patient declines rehab and will return home with her daughter. Appreciate Neurology input. Patient with long standing history of this. (2) Fracture of right patella: Surgical management per ortho. s/p ORIF 2/ WBAT with knee in immobilizer Follow up with Ortho at appointment scheduled (3) Laceration of left eyebrow: supportive measures. (4) Anemia: Hb 12 at baseline. no active bleeding noted (5) DMII (diabetes mellitus, type 2): A1C uncontrolled at 7.5 with goal <6.5. Resume metformin at discharge Follow up with PCP for further management (6) Hypertensive urgency: Continue Benazepril while here BP has been well controlled (7) DVT prophylaxis: SCDs while in the hospital Aspirin 81mg BID x 6 weeks Home Health Attestation I certify that this patient is under my care and that I, or a physicians social work assistant working with me, had a face to-face encounter that meets the home health [id number] encounter requirements with this patient. The encounter with the patient was in whole, or in part, for the following medical condition, which is the primary reason for home health care (list medical condition): open reduction, internal fixation right patella I certify that, based on my findings, the following services are medically necessary home health services: My clinical findings support the need for the above services because: OT Assess ADL Status and Restore Function w ADLs PT Assessment for Endurance / Balance / Strength PT Eval for Safety and Mobility PT Eval for Safety, Gait Training, Assistive Devices PT Gait and Balance Training, Strengthening and Safety Skilled Nsg Assessment Skilled Nsg Assess Pt Illness, Disease and Sx Monitoring Further, I certify that my clinical findings support that this patient is homebound (i.e. absences from home require considerable and taxing effort and are for medical reasons or religion services or infrequently or of short duration when for other reasons) because: Transportation Assistance/Unable to Leave Home Unassisted Certification for Home Health Services: Based on the above findings, I certify that this patient is confined to the home and needs intermittent fdc care, physical therapy and/or speech therapy or continues to need occupational therapy. The patient is under my care, and I have initiated the establishment of the plan of care. This patient will be followed by a physician who will periodically review the plan of care. Total Time Total Time Spent Total Time Spent (In Minutes): 35 Discharge Plan Discharge Items Patient Disposition: Home - Home Health Services Reason For Visit: HTN URG Discharge Diagnosis: Fall at home Right patella fracture s/p ORIF Condition on Discharge: Good Activity: As commented below Activity Comment: As tolerated Weightbearing: Full weightbearing Weightbearing Comment: With knee immobilizer in locked position Non-emergency contact: Primary Care Provider and Surgeon Call non-emergency contact if: you have any medication questions, your symptoms worsen and your pain is not controlled Follow-up/Referrals: Lenard Cobos MD [Primary Care Provider] - (Date & Time 07/29/2021 10:00 AM Provider Lenard Cobos MD Department [facility] ) Diet: Carb Consistent or DM2, Low Fat and Low Sodium (2gm) Addtl Attending Provider Instructions: Please follow up with your orthopedic surgeon for post op evaluation Addtl Global Product Manager Provider Instructions: Orthopedic Discharge Instruction: Weight bearing as tolerated in knee brace locked in extension Use walker to assist in ambulation F/U 07/27 @ 10:30AM with [facility] F/U 08/05 @ 8:45AM with Rachna Wells PA-C with [facility] Leave dressing in-tact ASA 81mg twice a day for 6 weeks for DVT prophylaxis Recommend oxycodone for and tylenol OTC for pain control Pending Studies at Discharge: No Stand-Alone Forms: My [email or web address], Opioid Pain Management, Smoking Cessation Medications and DC Order Prescriptions: New oxycodone 5 mg capsule 5 mg PO Q6 PRN (Reason: pain) Qty: 10 RF: 0 acetaminophen 325 mg Tablet 650 mg PO TID 7 Days Qty: 42 RF: 0 aspirin 81 mg tablet,delayed release (DR/EC) 81 mg PO BID 42 Days Qty: 84 RF: 0 Continued multivitamin [Daily Multi-Vitamin] Tablet 1 tab PO DAILY RF: 0 fluticasone propionate 50 mcg/actuation spray,suspension 2 spray INTNAS DAILY RF: 0 omeprazole 20 mg capsule,delayed release(DR/EC) 20 mg PO QAM RF: 0 metformin 850 mg tablet 850 mg PO TID RF: 0 levothyroxine 175 mcg tablet 175 mcg PO QAM RF: 0 atorvastatin 10 mg tablet 10 mg PO QAM RF: 0 flurbiprofen 100 mg tablet 100 mg PO BID RF: 0 benazepril 10 mg tablet 10 mg PO QAM RF: 0 escitalopram oxalate 20 mg tablet 20 mg PO QAM RF: 0 bupropion HCl 150 mg tablet extended release 24 hr 150 mg PO QAM RF: 0 omega 3-vhe-bat-fish oil 900-1,400 mg Capsule,Delayed Release(Dr/Ec) 1 cap PO QAM RF: 0 Discharge Orders: Discharge Order (Routine); Ordered 07/23/21 Ordered By: Cortney Almonte/Other Patient Handouts: Managing Type 2 Diabetes Admission Data Admit Date/Time: 07/22/21 00:23 Attending Provider: Cortney Hunter Admit Provider: Ming Eugene Primary Care Provider: Lenard Cobos Other Providers: Ming Eugene ; Eliazar Singer Benjamin B. ; Patt Kumar ; [facility]
--- NOTE | 2021-08-04 14:37 | Coding Query ---
ANEMIA To promote full compliance with coding requirements relating to patient care, physician participation is requested in all cases of manager ob uncertainty. Please assist us with the question(s) below: Coding Question(s): The record reflects the following clinical findings: Patient admitted with fx patella. hgb 07/20 10.5 , 07/21 9.8 . 07/21 progress note documented bruiding from injury, possible acute blood loss anemia.. Seeking to clarify if acute blood loss anemia was treated. Thank you. VALENTINA Celestin CCS If these findings are indicative of anemia, please specify the known or suspected type by placing an "X" within the parenthesis (x). If other, please document type. Examples are: ( ) Acute blood loss anemia ( ) Acute Postoperative blood loss anemia ( ) Acute postoperative anemia due to dilutional fluids ( ) Chronic blood loss anemia ( ) Anemia of chronic disease ( ) Aplastic anemia ( ) Anemia due to renal disease ( ) Anemia in neoplastic disease ( ) Iron deficient anemia ( ) Anemia, unspecified or other ( ) Other: (please specify) ( X ) Unable to determine Thank you Omar LOPEZ
== END 2021-07-23 15:35 | disposition home health service (06) | DRG 517 ==
LOC: ED 18:25 → 2N 18:25 → SUATTDRO 22:54 → 2N 07-21 02:36